=== PATIENT | female | born 1955 | race Caucasian/White ===

== ENCOUNTER → 2022-09-29 09:09 | Outpatient (BNVA) | payer OTHER, SELFPAY | PROVIDERS: PCP Internal Medicine; Visit Provider Student in an Organized Health Care Education/Training Program | DX: Z13.89 Encounter for screening for other disorder (principal) ==

== ENCOUNTER → 2023-01-05 08:12 | Outpatient (BNVA) | payer OTHER, SELFPAY | PROVIDERS: PCP Internal Medicine; Visit Provider Student in an Organized Health Care Education/Training Program ==

== ENCOUNTER 2023-04-06 07:47 | Outpatient (AMB) | payer OTHER, SELFPAY ==
[2023-04-06 07:59] VITALS: BP 106/70; PULSE 81; TEMP 36.3; O2SAT 97; BMI 31.7
--- NOTE | 2023-04-06 07:59 | A.OFFVIS_ITS ---
Intake Vital Signs 04/06/23 07:59 Height 5 ft 5 in Weight 190 lb 11.198 oz BMI 31.7 BP 106/70 Blood Pressure Location Rt brachial Position Sitting Pulse 81 Pulse Source Pulse Oximeter Temp 97.3 F Temp Source Skin Pulse Oximetry (%) 97 Intake Visit Reasons: RA Intake Note: Pt seen today for RA follow up. Reports pain/achyness started at knees but has resolved. 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 Accompanied by: Self / Same As Patient Allergies ciprofloxacin [From Cipro] Allergy (Intermediate, Verified 04/06/23 08:04) HIVES Penicillins Allergy (Intermediate, Verified 04/06/23 08:04) Hives [id number] Reductase Inhibitor Allergy (Intermediate, Verified 04/06/23 08:04) MUSCLE WEAKNESS Sulfa (Sulfonamide Antibiotics) Allergy (Intermediate, Verified 04/06/23 08:04) Hives PINEAPPLE Allergy (Intermediate, Uncoded 04/06/23 08:04) Hives SCALLOPS Allergy (Intermediate, Uncoded 04/06/23 08:04) Hives BLUE CHEESE Allergy (Unknown, Uncoded 04/06/23 08:04) Unknown Medication List - Last Reconciled 04/06/23 by Tahira Mackey MD acetaminophen ER (Tylenol Arthritis Pain) 650 mg PO BID folic acid 1 mg PO DAILY methotrexate sodium 20 mg (8 x 2.5 mg) PO QWEEK HPI HPI Comments History of Present Illness Details 67-year-old female with seropositive RA (++RF, -ve CCP) returns for follow-up. Doing better overall. Onmethotrexate 6 tabs once weekly. Cannot think of any side effects related to methotrexate. She feels that the methotrexate to works well for about 5 days then she start gets recurrent pain and stiffness. Over the last 2-3 weeks she has been having pain on the outside of both thighs. That ache is usually worse when standing up and walking after sitting down for a while or after driving. Initial history: This is a 66-year-old female with unremarkable past medical history except for seasonal allergies who presents with left knee pain. The condition started in February of last year with the abrupt onset of left knee pain and swelling. She was evaluated by Orthopedics and had an intra-articular steroid injection which helped her for about 1 year. Last April she also developed abrupt onset right ankle swelling. That improved with Tylenol arthritis and naproxen. Last month she was having left knee pain as well as instability and that resulted in a fall. She was evaluated by Orthopedics and had a left knee intra-articular injection last week which gave her good relief until a few days ago when she started physical therapy, he stated that the physical therapy applied a tape on her knee which worsened her knee pain. So s he had to remove it. Currently patient denies any pain except for her left knee pain. She denies any pain or swelling, stiffness in other joints. Denies Raynaud's. Denies any skin rashes. No history of DVT/PE. [facility] Surgical History H/O arthroscopy History of appendectomy History of cholecystectomy Hx of section Family History Mother Arthritis Father Heart disease Social History Household Members Other:: LIVES ALONE Housing: [facility] Are you a primary long term care social worker to a significant other at home: No Do you presently have visiting nurse or other home services: No 75 years or older and lives alone: No Alcohol intake: current Alcohol intake frequency: holidays/special occasions only Alcohol type: hard liquor Patient Tobacco Use Status: Former Tobacco user Quit Date: 1995 Tobacco use type: Cigarette Cigarettes Per Day: 8 Years Smoked: 30 YEARS e-Cigarette/Vaping Use: Never Used service: No Current occupational status: employed 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 Review of Systems Const All systems reviewed & are unremarkable except as noted in HPI and below Musc Reports arthralgias Physical Exam Vital Signs: Last Vital Signs Temp 97.3 F 04/06/23 07:59 Pulse 81 04/06/23 07:59 BP 106/70 04/06/23 07:59 Pulse Ox 97 04/06/23 07:59 BMI result Body Mass Index 31.7 Const General: cooperative, healthy appearing and comfortable Nutritional Appearance: average body habitus and obese Orientation/consciousness: patient oriented x3 Limitations: no limitations HEENT Head: Yes normocephalic and Yes atraumatic Resp Effort & Inspection: normal respiratory effort and able to speak in complete sentences Auscultation: clear to auscultation bilaterally Cardio Rate: regular rate Neuro General: patient oriented x3 Extrem Other: No synovitis today Left knee crepitus Negative straight leg raise test Bilateral trochanteric bursa area tenderness with negative Darshana's test Normal nailfold capillaroscopy Results Reviewed Results Reviewed: MRI OF LEG JOINT / LOWER EXTREMITY JOINT NO CONTRAST Exam Date: 03/14/2021 10:53 AM Ordering Diagnosis: Difficulty in weight bearing ? History: Pain and limited range of motion. Difficulty weightbearing. ? Left knee MRI: Departmental standard knee MRI protocol was used. ? FINDINGS: The menisci, ACL, PCL and collateral ligaments are intact. There is some mild thinning of the articular surface at the medial margin of the medial femoral condyle. There is some minimal associated subchondral sclerosis. There is substantial bone edema within the medial femoral condyle underlying the articular surface with some proximal extension. There is some immediately adjacent soft tissue edema underlying the posterior aspect of the medial retinaculum. Bony signal abnormality may reflect contusion or stress reaction. There is no evidence of fracture. Overlying soft tissue edema may represent localized inflammation and/or a low-grade medial retinacular sprain.. ? The medial lateral compartment articular surfaces are otherwise intact. There is moderate patellofemoral compartment degeneration. ? There is a Aranda's cyst containing innumerable loculations with some intermediate signal intensity in wall thickening most likely representing synovial proliferation. It measures about 8 cm craniocaudal dimension maximum axial dimensions of 2.7 x 1.9 cm. ? IMPRESSION IMPRESSION: Extensive bone edema within the medial femoral condyle consistent with contusion or stress reaction. Overlying soft tissue edema, localized inflammation versus low-grade medial retinacular injury. Moderate patellofemoral compartment degeneration. Large complex Aranda's cyst. MRI OF LEG JOINT / LOWER EXTREMITY JOINT NO CONTRAST Exam Date: 07/20/2022 4:20 PM Ordering Diagnosis: Internal derangement of left kneeStatus post fallInjury of left knee, initial encounter ? History: Left knee injury. ? Left knee MRI: A departmental standard knee MRI protocol was used. ? FINDINGS: There is a moderately large joint effusion. There is some edema and thickening at the posterior margin of the medial collateral ligament and the adjacent posterior capsule consistent with a low to intermediate grade sprain. The lateral collateral ligaments are intact. The ACL, PCL and menisci are intact. ? There is a subtle undulation of the cortex of the subarticular lateral femoral condyle with a small focus of bone edema evident on sagittal T2-weighted scans. Findings are consistent with a minimal osteochondral injury. There is no evidence of cortical fracture. There are no displaced components or articular surface defects. Finding is marked on coronal image 19 series 401 as well as sagittal image 10 series 701. ? There is severe patellofemoral degeneration. There is some bone edema underlying the articular surface of the trochlea. There is minimal medial and lateral compartment degeneration with some thinning of the articular surface at the extreme joint margins with slight marginal spurring. ? There is a complex Aranda's cyst demonstrating innumerable loculations. It extends about 8.5 cm proximal to distal across the level of the knee joint. Maximum dimensions in the axial plane are approximately 2.3 x 1.7 cm. There is edema and fluid extending distal to the cyst into the proximal thigh overlying the medial head of gastrocnemius muscle consistent with rupture. ? IMPRESSION IMPRESSION: Low to intermediate grade MCL and posterior capsule sprain. Minimal osteochondral injury of the lateral femoral condyle. Severe patellofemoral compartment degeneration. Ruptured complex Aranda's cyst. Joint effusion. ? Reading Radiologist: X-RAY EXAM OF FOOT, COMPLETE (3 VIEWS)Exam Date:05/13/2022 10:19 AMAccession #: [id number] Diagnosis:Flail joint, right ankle and foot ?RIGHT FOOT, 3 VIEWS-WEIGHTBEARING; RIGHT ANKLE, 3 VIEWS?HISTORY: Pain. Flail joint.?PRIORS: None.?FINDINGS: There is mild degenerative spurring of the 1st MTP joint?There is a small plantar spur and a small posterior calcaneal spur.?No fracture, malalignment, or foreign body is seen.?There is mild soft tissue swelling overlying the lateral malleolus.?The ankle mortise appears normally aligned.?IMPRESSIONIMPRESSION: Mild soft tissue swelling.?Mild osteoarthritis of the 1st MTP joint.?Calcaneal spurs. Labs 04/2022 RF 64 (<15) CCP negative Labs 07/2022 significantly elevated inflammatory markers, hepatitis panel negative T spot negative Assessment & Plan Assessment & Plan (1) Rheumatoid arthritis: Comment: ++RF, -ve CCP Dx 08/19 MTX 15 mg started 10/21 effective advanced to 20 mg 04/20 Code(s): M06.9 - Rheumatoid arthritis, unspecified Qualifiers: Rheumatoid arthritis location: multiple sites Rheumatoid factor presence: with rheumatoid factor Qualified Code(s): M05.79 - Rheumatoid arthritis with rheumatoid factor of multiple sites without organ or systems involvement Plan: This is a 67-year-old female with seropositive RA returns for follow-up. Doing fairly well on methotrexate 15 mg weekly but who works for about 5 days then she started getting achy. Increase methotrexate to 20 mg once weekly, split dose. Continue folic acid 1 mg daily Patient is a chronic smoker and continues to smoke 10 cigarettes a day. I explained that smoking is associated with active RA and poor prognosis. She is working on cutting down. 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 Will monitor patient for side effects with frequent lab work. Advised patient to take folic acid daily to prevent complications of methotrexate. (3) Trochanteric bursitis of both hips: Code(s): M70.61 - Trochanteric bursitis, right hip; M70.62 - Trochanteric bursitis, left hip Plan: I provided patient with a printout of home exercises to do for greater trochanteric pain syndrome. Plan I spent 24 minutes reviewing patient's chart, evaluating patient, ordering diagnostic workup, counseling patient and documenting in the chart Orders: Orders Complete Blood Count Auto Diff 3 Months Z79.631 - termite helper (current) use of antimetabolite agent Comprehensive Met. Panel 3 Months Z79.631 - termite helper (current) use of antimetabolite agent C Reactive Protein 3 Months Z79.631 - termite helper (current) use of antimetabolite agent Erythrocyte Sedimentation Rate 3 Months Z79.631 - [facility] (current) use of antimetabolite agent Medications: Changed 2 From methotrexate sodium 15 mg (6 x 2.5 mg) PO QWEEK 72 tabs 0RF To methotrexate sodium Split dose in to 4 tabs twice. 12-24 hours apart 20 mg (8 x 2.5 mg) PO QWEEK 96 tabs 0RF Coding Level of Care Code Est Pt Level 4 (19721) Diagnoses Rheumatoid arthritis M05.79 Rheumatoid arthritis location: multiple sites Rheumatoid factor presence: with rheumatoid factor termite helper 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 Trochanteric bursitis of both hips M70.61; M70.62
== END 2023-04-06 08:37 | disposition home or self-care (01) ==
PROVIDERS: PCP Internal Medicine; Visit Provider Student in an Organized Health Care Education/Training Program
DX: M05.79 Rheumatoid arthritis with rheumatoid factor of multiple sites without organ or systems involvement (principal); Z79.631 Long term (current) use of antimetabolite agent; M70.61 Trochanteric bursitis, right hip; M70.62 Trochanteric bursitis, left hip
CPT/HCPCS: 99214

== ENCOUNTER → 2023-04-06 07:47 | Outpatient (BNVA) | payer OTHER, SELFPAY | PROVIDERS: Visit Provider Student in an Organized Health Care Education/Training Program ==

== ENCOUNTER 2023-07-06 07:41 | Outpatient (REF) | payer OTHER, SELFPAY ==
--- NOTE | ~2023-07-06 | XR_ITS ---
EXAMINATION: XR FOOT, RIGHT CLINICAL INFORMATION: Rheumatoid arthritis. COMPARISON: None available. TECHNIQUE: AP, lateral, and oblique views of the right foot. FINDINGS: Moderate degenerative changes first metatarsophalangeal joint with lateral joint space narrowing and hypertrophic change. Moderate degenerative changes second IP joints. Moderate plantar calcaneal spur with punctate soft tissue calcification inferior to the anterior aspect of the calcaneus. XR/XR foot RT min 3V IMPRESSION: Moderate degenerative changes in the first metatarsophalangeal joint. Moderate plantar calcaneal spur with punctate soft tissue calcification inferior to the anterior aspect of the calcaneus. Recommend follow-up imaging in 10-14 days if fracture is suspected.
== END 2023-07-06 07:42 | disposition home or self-care (01) ==
LOC: HO.XRAY 07:41
PROVIDERS: PCP Internal Medicine; Visit Provider Student in an Organized Health Care Education/Training Program
DX: M05.79 Rheumatoid arthritis with rheumatoid factor of multiple sites without organ or systems involvement (principal)
CPT/HCPCS: 73630

== ENCOUNTER 2023-07-06 07:41 | Outpatient (AMB) | payer OTHER, SELFPAY ==
[2023-07-06 07:48] VITALS: BP 100/64; PULSE 83; TEMP 36.1; O2SAT 95; BMI 32.2
--- NOTE | 2023-07-06 07:48 | A.OFFVIS_ITS ---
Intake Vital Signs 07/06/23 07:48 Height 5 ft 5 in Weight 193 lb 12.581 oz BMI 32.2 BP 100/64 Blood Pressure Location Rt brachial Position Sitting Pulse 83 Pulse Source Pulse Oximeter Temp 97 F Temp Source Skin Pulse Oximetry (%) 95 Oxygen Delivery Method Room Air Intake Visit Reasons: RA Intake Note: Pt last seen 04/06/23, presents today for follow up and test results. MTX increased to 20mg Reports taking doxy for whole on right second toe around 05/22/23. 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 Accompanied by: Self / Same As Patient Allergies ciprofloxacin [From Cipro] Allergy (Intermediate, Verified 07/06/23 07:53) HIVES Penicillins Allergy (Intermediate, Verified 07/06/23 07:53) Hives [id number] Reductase Inhibitor Allergy (Intermediate, Verified 07/06/23 07:53) MUSCLE WEAKNESS Sulfa (Sulfonamide Antibiotics) Allergy (Intermediate, Verified 07/06/23 07:53) Hives PINEAPPLE Allergy (Intermediate, Uncoded 07/06/23 07:53) Hives SCALLOPS Allergy (Intermediate, Uncoded 07/06/23 07:53) Hives BLUE CHEESE Allergy (Unknown, Uncoded 07/06/23 07:53) Unknown Medication List - Last Reconciled 07/06/23 by Thaira Mackey MD acetaminophen ER (Tylenol Arthritis Pain) 650 mg PO BID folic acid 1 mg PO DAILY methotrexate sodium 17.5 mg PO QWEEK methotrexate sodium 17.5 mg PO QWEEK HPI HPI Comments History of Present Illness Details 67-year-old female with seropositive RA (++RF, -ve CCP) returns for follow-up. Last visit methotrexate dose was increased from 15-20 mg. Patient states that she is taking 17.5 mg. States that 20 mg makes her dizzy. She is doing very well with no joint pain, swelling or stiffness. Back in April however she went to urgent care due to a wound in her right 4th toe associated with erythema. She was prescribed a doxycycline course for 7 days with significant improvement however she continues to have some pain in that right 4th toe. Initial history: This is a 66-year-old female with unremarkable past medical history except for seasonal allergies who presents with left knee pain. The condition started in February of last year with the abrupt onset of left knee pain and swelling. She was evaluated by Orthopedics and had an intra-articular steroid injection which helped her for about 1 year. Last April she also developed abrupt onset right ankle swelling. That improved with Tylenol arthritis and naproxen. Last month she was having left knee pain as well as instability and that resulted in a fall. She was evaluated by Orthopedics and had a left knee intra-articular injection last week which gave her good relief until a few days ago when she started physical therapy, he stated that the physical therapy applied a tape on her knee which worsened her knee pain. So she had to remove it. Currently patient denies any pain except for her left knee pain. She denies any pain or swelling, stiffness in other joints. Denies Raynaud's. Denies any skin rashes. No history of DVT/PE. [facility] Surgical History Hx of section H/O arthroscopy History of cholecystectomy History of appendectomy Family History Mother Arthritis Father Heart disease Social History Household Members Other:: LIVES ALONE Housing: Condominium Are you a primary janitor caretaker to a significant other at home: No Do you presently have visiting nurse or other home services: No 75 years or older and lives alone: No Alcohol intake: current Alcohol intake frequency: holidays/special occasions only Alcohol type: hard liquor Patient Tobacco Use Status: Former Tobacco user Quit Date: 1995 Tobacco use type: Cigarette Cigarettes Per Day: 10 Years Smoked: 30 YEARS e-Cigarette/Vaping Use: Never Used service: No Current occupational status: employed 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 Review of Systems Const All systems reviewed & are unremarkable except as noted in HPI and below Musc Reports arthralgias Physical Exam Vital Signs: Last Vital Signs Temp 97 F 07/06/23 07:48 Pulse 83 07/06/23 07:48 BP 100/64 07/06/23 07:48 Pulse Ox 95 07/06/23 07:48 Oxygen Delivery Method Room Air 07/06/23 07:48 BMI result Body Mass Index 32.2 Const General: cooperative, healthy appearing and comfortable Nutritional Appearance: average body habitus and obese Orientation/consciousness: patient oriented x3 Limitations: no limitations HEENT Head: Yes normocephalic and Yes atraumatic Resp Effort & Inspection: normal respiratory effort and able to speak in complete sentences Auscultation: clear to auscultation bilaterally Cardio Rate: regular rate Neuro General: patient oriented x3 Extrem Other: No synovitis today Normal nailfold capillaroscopy Tiny circular wound on the outer aspect of the right 4th toe, minimally tender to palpation. There is no surrounding erythema, swelling or warmth Results Reviewed Results Reviewed: MRI OF LEG JOINT / LOWER EXTREMITY JOINT NO CONTRAST Exam Date: 03/14/2021 10:53 AM Ordering Diagnosis: Difficulty in weight bearing ? History: Pain and limited range of motion. Difficulty weightbearing. ? Left knee MRI: Departmental standard knee MRI protocol was used. ? FINDINGS: The menisci, ACL, PCL and collateral ligaments are intact. There is some mild thinning of the articular surface at the medial margin of the medial femoral condyle. There is some minimal associated subchondral sclerosis. There is substantial bone edema within the medial femoral condyle underlying the articular surface with some proximal extension. There is some immediately adjacent soft tissue edema underlying the posterior aspect of the medial retinaculum. Bony signal abnormality may reflect contusion or stress reaction. There is no evidence of fracture. Overlying soft tissue edema may represent localized inflammation and/or a low-grade medial retinacular sprain.. ? The medial lateral compartment articular surfaces are otherwise intact. There is moderate patellofemoral compartment degeneration. ? There is a Aranda's cyst containing innumerable loculations with some intermediate signal intensity in wall thickening most likely representing synovial proliferation. It measures about 8 cm craniocaudal dimension maximum axial dimensions of 2.7 x 1.9 cm. ? IMPRESSION IMPRESSION: Extensive bone edema within the medial femoral condyle consistent with contusion or stress reaction. Overlying soft tissue edema, localized inflammation versus low-grade medial retinacular injury. Moderate patellofemoral compartment degeneration. Large complex Aranda's cyst. MRI OF LEG JOINT / LOWER EXTREMITY JOINT NO CONTRAST Exam Date: 07/20/2022 4:20 PM Ordering Diagnosis: Internal derangement of left kneeStatus post fallInjury of left knee, initial encounter ? History: Left knee injury. ? Left knee MRI: A departmental standard knee MRI protocol was used. ? FINDINGS: There is a moderately large joint effusion. There is some edema and thickening at the posterior margin of the medial collateral ligament and the adjacent posterior capsule consistent with a low to intermediate grade sprain. The lateral collateral ligaments are intact. The ACL, PCL and menisci are intact. ? There is a subtle undulation of the cortex of the subarticular lateral femoral condyle with a small focus of bone edema evident on sagittal T2-weighted scans. Findings are consistent with a minimal osteochondral injury. There is no evidence of cortical fracture. There are no displaced components or articular surface defects. Finding is marked on coronal image 19 series 401 as well as sagittal image 10 series 701. ? There is severe patellofemoral degeneration. There is some bone edema underlying the articular surface of the trochlea. There is minimal medial and lateral compartment degeneration with some thinning of the articular surface at the extreme joint margins with slight marginal spurring. ? There is a complex Aranda's cyst demonstrating innumerable loculations. It extends about 8.5 cm proximal to distal across the level of the knee joint. Maximum dimensions in the axial plane are approximately 2.3 x 1.7 cm. There is edema and fluid extending distal to the cyst into the proximal thigh overlying the medial head of gastrocnemius muscle consistent with rupture. ? IMPRESSION IMPRESSION: Low to intermediate grade MCL and posterior capsule sprain. Minimal osteochondral injury of the lateral femoral condyle. Severe patellofemoral compartment degeneration. Ruptured complex Aranda's cyst. Joint effusion. ? Reading Radiologist: X-RAY EXAM OF FOOT, COMPLETE (3 VIEWS)Exam Date:05/13/2022 10:19 AMAccession #: [id number] Diagnosis:Flail joint, right ankle and foot ?RIGHT FOOT, 3 VIEWS-WEIGHTBEARING; RIGHT ANKLE, 3 VIEWS?HISTORY: Pain. Flail joint.?PRIORS: None.?FINDINGS: There is mild degenerative spurring of the 1st MTP joint?There is a small plantar spur and a small posterior calcaneal spur.?No fracture, malalignment, or foreign body is seen.?There is mild soft tissue swelling overlying the lateral malleolus.?The ankle mortise appears normally aligned.?IMPRESSIONIMPRESSION: Mild soft tissue swelling.?Mild osteoarthritis of the 1st MTP joint.?Calcaneal spurs. Labs 04/2022 RF 64 (<15) CCP negative Labs 07/2022 significantly elevated inflammatory markers, hepatitis panel negative T spot negative Assessment & Plan Assessment & Plan (1) Rheumatoid arthritis: Comment: ++RF, -ve CCP Dx 08/19 MTX 15 mg started 10/21 effective Code(s): M06.9 - Rheumatoid arthritis, unspecified Qualifiers: Rheumatoid arthritis location: multiple sites Rheumatoid factor presence: with rheumatoid factor Qualified Code(s): M05.79 - Rheumatoid arthritis with rheumatoid factor of multiple sites without organ or systems involvement Plan: This is a 67-year-old female with seropositive RA returns for follow-up. Doing well on methotrexate 17.5 mg weekly. 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 She was prescribed doxycycline with improvement, she continues to have some pain in the area., on exam she has a tiny circular wound on the right 4th toe. Will check a right foot x-ray. Will prescribe anti fungal cream and advised patient to hold methotrexate for 2 weeks (4) Immunization counseling: Code(s): Z71.85 - Encounter for immunization safety counseling Plan: Discussed ACR vaccination guidelines for adults with autoimmune rheumatic disease on immune suppression. Patient already received flu vaccine for this season. I suggested that patient get the new COVID booster Plan I spent 28 minutes reviewing patient's chart, evaluating patient, ordering diagnostic workup, counseling patient and documenting in the chart Orders: Orders Comprehensive Met. 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) use of antimetabolite agent Erythrocyte Sedimentation Rate 3 Months Z79.631 - senior living (current) use of antimetabolite agent Complete Blood Count Auto Diff 3 Months Z79.631 - predatory animal exterminator (current) use of antimetabolite agent XR foot RT min 3V Today M06.9 - Rheumatoid arthritis, unspecified Medications: New terbinafine HCl 1% (Antifungal (terbinafine)) 2 weeks 1 appl topical BID 15 grams 0RF methotrexate sodium 17.5 mg (7 x 2.5 mg) PO QWEEK 84 tabs 0RF Coding Level of Care Code Est Pt Level 4 (42093) Diagnoses Rheumatoid arthritis involving multiple sites with positive rheumatoid factor M05.79 Rheumatoid arthritis location: multiple sites Rheumatoid factor presence: with rheumatoid factor 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
== END 2023-07-06 08:19 | disposition home or self-care (01) ==
PROVIDERS: PCP Internal Medicine; Visit Provider Student in an Organized Health Care Education/Training Program
DX: M05.79 Rheumatoid arthritis with rheumatoid factor of multiple sites without organ or systems involvement (principal); Z79.631 Long term (current) use of antimetabolite agent; S91.104A Unspecified open wound of right lesser toe(s) without damage to nail, initial encounter; Z71.85 Encounter for immunization safety counseling
CPT/HCPCS: 99214

== ENCOUNTER 2023-10-26 07:25 | Outpatient (AMB) | payer OTHER, SELFPAY ==
--- NOTE | 2023-10-26 07:29 | MHC.OFFVIS ---
Intake Vital Signs 10/26/23 07:33 Height 5 ft 5 in Weight 195 lb 1.745 oz BMI 32.5 BP 110/64 Blood Pressure Location Rt brachial Position Sitting Pulse 87 Pulse Source Pulse Oximeter Temp 97.3 F Temp Source Skin Pulse Oximetry (%) 97 Oxygen Delivery Method Room Air Intake Visit Reasons: RA Intake Note: Patient last seen 07/06/23 presents today for follow up and test results. Had covid in [facility], nosebleeds with dry mouth Side Puller Required: No Accompanied by: Self / Same As Patient Allergies ciprofloxacin [From Cipro] Allergy (Intermediate, Verified 10/26/23 07:34) HIVES Penicillins Allergy (Intermediate, Verified 10/26/23 07:34) Hives Mipcbco-ACY-UzL Reductase Inhibitor Allergy (Intermediate, Verified 10/26/23 07:34) MUSCLE WEAKNESS Sulfa (Sulfonamide Antibiotics) Allergy (Intermediate, Verified 10/26/23 07:34) Hives PINEAPPLE Allergy (Intermediate, Uncoded 10/26/23 07:34) Hives SCALLOPS Allergy (Intermediate, Uncoded 10/26/23 07:34) Hives BLUE CHEESE Allergy (Unknown, Uncoded 10/26/23 07:34) Unknown Medication List - Last Reconciled 10/26/23 by Tahira Mackey MD acetaminophen ER (Tylenol Arthritis Pain) 650 mg PO BID folic acid 1 mg PO DAILY methotrexate sodium 10 mg (4 x 2.5 mg) PO QWEEK terbinafine HCl 1% (Antifungal (terbinafine)) 1 appl topical BID HPI HPI Comments History of Present Illness Details 67-year-old female with seropositive RA (++RF, -ve CCP) returns for follow-up. On methotrexate 20 mg weekly. She stated that 17.5 mg did not last the whole week so she has been taking 20 mg for the last month which is working well. She had COVID in August, she had a fever for 1 day and had some dry mouth and nose. It resolved in a few days. She is doing well with no joint pain or swelling. Initial history: This is a 66-year-old female with unremarkable past medical history except for seasonal allergies who presents with left knee pain. The condition started in February of last year with the abrupt onset of left knee pain and swelling. She was evaluated by Orthopedics and had an intra-articular steroid injection which helped her for about 1 year. Last April she also developed abrupt onset right ankle swelling. That improved with Tylenol arthritis and naproxen. Last month she was having left knee pain as well as instability and that resulted in a fall. She was evaluated by Orthopedics and had a left knee intra-articular injection last week which gave her good relief until a few days ago when she started physical therapy, he stated that the physical therapy applied a tape on her knee which worsened her knee pain. So she had to remove it. Currently patient denies any pain except for her left knee pain. She denies any pain or swelling, stiffness in other joints. Denies Raynaud's. Denies any skin rashes. No history of DVT/PE. [facility] Surgical History Hx of section H/O arthroscopy History of cholecystectomy History of appendectomy Family History Mother Arthritis Father Heart disease Social History Household Members Other:: LIVES ALONE [facility] Are you a primary personal care worker to a significant other at home: No Do you presently have visiting nurse or other home services: No 75 years or older and lives alone: No Alcohol intake: current Alcohol intake frequency: holidays/special occasions only Alcohol type: hard liquor Patient Tobacco Use Status: Former Tobacco user Quit Date: 1995 Tobacco use type: Cigarette Cigarettes Per Day: 10 Years Smoked: 30 YEARS e-Cigarette/Vaping Use: Never Used service: No Current occupational status: employed 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 Review of Systems [facility] [place] Denies arthralgias and Denies joint swelling Physical Exam Vital Signs: Last Vital Signs Temp 97.3 F 10/26/23 07:33 Pulse 87 10/26/23 07:33 BP 110/64 10/26/23 07:33 Pulse Ox 97 10/26/23 07:33 Oxygen Delivery Method Room Air 10/26/23 07:33 BMI result Body Mass Index 32.5 Const General: cooperative, healthy appearing and comfortable Nutritional Appearance: average body habitus and obese Orientation/consciousness: patient oriented x3 Limitations: no limitations HEENT Head: Yes normocephalic and Yes atraumatic Mouth: moist mucous membranes Resp Effort & Inspection: normal respiratory effort and able to speak in complete sentences Auscultation: clear to auscultation bilaterally Cardio Rate: regular rate Rhythm: regular rhythm Skin General skin exam: no rashes or lesions noted Neuro General: patient oriented x3 Extrem Other: No synovitis today Normal nailfold capillaroscopy Results Reviewed Results Reviewed: MRI OF LEG JOINT / LOWER EXTREMITY JOINT NO CONTRAST Exam Date: 03/14/2021 10:53 AM Ordering Diagnosis: Difficulty in weight bearing ? History: Pain and limited range of motion. Difficulty weightbearing. ? Left knee MRI: Departmental standard knee MRI protocol was used. ? FINDINGS: The menisci, ACL, PCL and collateral ligaments are intact. There is some mild thinning of the articular surface at the medial margin of the medial femoral condyle. There is some minimal associated subchondral sclerosis. There is substantial bone edema within the medial femoral condyle underlying the articular surface with some proximal extension. There is some immediately adjacent soft tissue edema underlying the posterior aspect of the medial retinaculum. Bony signal abnormality may reflect contusion or stress reaction. There is no evidence of fracture. Overlying soft tissue edema may represent localized inflammation and/or a low-grade medial retinacular sprain.. ? The medial lateral compartment articular surfaces are otherwise intact. There is moderate patellofemoral compartment degeneration. ? There is a Aranda's cyst containing innumerable loculations with some intermediate signal intensity in wall thickening most likely representing synovial proliferation. It measures about 8 cm craniocaudal dimension maximum axial dimensions of 2.7 x 1.9 cm. ? IMPRESSION IMPRESSION: Extensive bone edema within the medial femoral condyle consistent with contusion or stress reaction. Overlying soft tissue edema, localized inflammation versus low-grade medial retinacular injury. Moderate patellofemoral compartment degeneration. Large complex Aranda's cyst. MRI OF LEG JOINT / LOWER EXTREMITY JOINT NO CONTRAST Exam Date: 07/20/2022 4:20 PM Ordering Diagnosis: Internal derangement of left kneeStatus post fallInjury of left knee, initial encounter ? History: Left knee injury. ? Left knee MRI: A departmental standard knee MRI protocol was used. ? FINDINGS: There is a moderately large joint effusion. There is some edema and thickening at the posterior margin of the medial collateral ligament and the adjacent posterior capsule consistent with a low to intermediate grade sprain. The lateral collateral ligaments are intact. The ACL, PCL and menisci are intact. ? There is a subtle undulation of the cortex of the subarticular lateral femoral condyle with a small focus of bone edema evident on sagittal T2-weighted scans. Findings are consistent with a minimal osteochondral injury. There is no evidence of cortical fracture. There are no displaced components or articular surface defects. Finding is marked on coronal image 19 series 401 as well as sagittal image 10 series 701. ? There is severe patellofemoral degeneration. There is some bone edema underlying the articular surface of the trochlea. There is minimal medial and lateral compartment degeneration with some thinning of the articular surface at the extreme joint margins with slight marginal spurring. ? There is a complex Aranda's cyst demonstrating innumerable loculations. It extends about 8.5 cm proximal to distal across the level of the knee joint. Maximum dimensions in the axial plane are approximately 2.3 x 1.7 cm. There is edema and fluid extending distal to the cyst into the proximal thigh overlying the medial head of gastrocnemius muscle consistent with rupture. ? IMPRESSION IMPRESSION: Low to intermediate grade MCL and posterior capsule sprain. Minimal osteochondral injury of the lateral femoral condyle. Severe patellofemoral compartment degeneration. Ruptured complex Aranda's cyst. Joint effusion. ? Reading Radiologist: X-RAY EXAM OF FOOT, COMPLETE (3 VIEWS)Exam Date:05/13/2022 10:19 AMAccession #:[id number] Diagnosis:Flail joint, right ankle and foot ?RIGHT FOOT, 3 VIEWS-WEIGHTBEARING; RIGHT ANKLE, 3 VIEWS?HISTORY: Pain. Flail joint.?PRIORS: None.?FINDINGS: There is mild degenerative spurring of the 1st MTP joint?There is a small plantar spur and a small posterior calcaneal spur.?No fracture, malalignment, or foreign body is seen.?There is mild soft tissue swelling overlying the lateral malleolus.?The ankle mortise appears normally aligned.?IMPRESSIONIMPRESSION: Mild soft tissue swelling.?Mild osteoarthritis of the 1st MTP joint.?Calcaneal spurs. Labs 04/2022 RF 64 (<15) CCP negative Labs 07/2022 significantly elevated inflammatory markers, hepatitis panel negative T spot negative Assessment & Plan Assessment & Plan (1) Rheumatoid arthritis: Comment: ++RF, -ve CCP Dx 08/19 MTX started 10/21 effective Code(s): M06.9 - Rheumatoid arthritis, unspecified Qualifiers: Rheumatoid arthritis location: multiple sites Rheumatoid factor presence: with rheumatoid factor Qualified Code(s): M05.79 - Rheumatoid arthritis with rheumatoid factor of multiple sites without organ or systems involvement Plan: This is a 67-year-old female with seropositive RA returns for follow-up. Doing well on methotrexate 20 mg weekly. She self increased her methotrexate from 17.5 mg weekly to 20 mg weekly as it was not lasting long enough. Doing well on the current dose with no active synovitis. Inflammatory markers unremarkable Continue methotrexate 20 mg weekly and folic acid 1 mg daily Infectious screening: Hepatitis panel and T spot -ve 2022 Labs before next visit in 4 months (2) assisted methotrexate user: Code(s): Z79.631 - assisted (current) use of antimetabolite agent Plan: Monitor safety labs (3) Screening for osteoporosis: Code(s): Z13.820 - Encounter for screening for osteoporosis Plan: Patient does not recall ever getting a bone density scan done. Discussed patient that she is due for a bone density scan. 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 agent Medications: Changed From methotrexate sodium 10 mg (4 x 2.5 mg) PO QWEEK 52 tabs 1RF To methotrexate sodium 20 mg (8 x 2.5 mg) PO QWEEK 96 tabs 1RF Refilled folic acid 1 mg PO DAILY 90 tabs 1RF Discontinued terbinafine HCl 1% (Antifungal (terbinafine)) 2 weeks Discontinued Reason: Patient Completed Course 1 appl topical BID 15 grams 0RF Coding Level of Care Code Est Pt Level 4 (97676) Diagnoses Rheumatoid arthritis involving multiple sites with positive rheumatoid factor M05.79 Rheumatoid arthritis location: multiple sites Rheumatoid factor presence: with rheumatoid factor assisted 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 Screening for osteoporosis Z13.820
[2023-10-26 07:33] VITALS: BP 110/64; PULSE 87; TEMP 36.3; O2SAT 97; BMI 32.5
== END 2023-10-26 07:54 | disposition home or self-care (01) ==
PROVIDERS: PCP Internal Medicine; Visit Provider Student in an Organized Health Care Education/Training Program
DX: M05.79 Rheumatoid arthritis with rheumatoid factor of multiple sites without organ or systems involvement (principal); Z79.631 Long term (current) use of antimetabolite agent; Z13.820 Encounter for screening for osteoporosis
CPT/HCPCS: 99214

== ENCOUNTER → 2023-10-26 07:25 | Outpatient (BNVA) | payer OTHER, SELFPAY | PROVIDERS: PCP Internal Medicine; Visit Provider Student in an Organized Health Care Education/Training Program ==

== ENCOUNTER 2024-02-22 07:24 | Outpatient (AMB) | payer OTHER, SELFPAY ==
[2024-02-22 07:32] VITALS: BP 118/64; PULSE 83; O2SAT 98; BMI 31.8
--- NOTE | 2024-02-22 07:32 | A.OFFVIS_ITS ---
Vital Signs 02/22/24 07:32 Height 5 ft 5 in Weight 191 lb 2.252 oz BMI 31.8 BP 118/64 Blood Pressure Location Rt brachial Position Sitting Pulse 83 Pulse Source Pulse Oximeter Pulse Oximetry (%) 98 Oxygen Delivery Method Room Air Intake Visit Reasons: RA/cm Intake Note: Pt seen today for RA follow up. Requests medication refill. 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 Accompanied by: Self / Same As Patient Allergies ciprofloxacin [From Cipro] Allergy (Intermediate, Verified 02/22/24 07:39) HIVES Penicillins Allergy (Intermediate, Verified 02/22/24 07:39) Hives Nqcmhbr-LBI-IvA Reductase Inhibitor Allergy (Intermediate, Verified 02/22/24 07:39) MUSCLE WEAKNESS Sulfa (Sulfonamide Antibiotics) Allergy (Intermediate, Verified 02/22/24 07:39) Hives PINEAPPLE Allergy (Intermediate, Uncoded 02/22/24 07:39) Hives SCALLOPS Allergy (Intermediate, Uncoded 02/22/24 07:39) Hives BLUE CHEESE Allergy (Unknown, Uncoded 02/22/24 07:39) Unknown Medication List - Last Reconciled 02/22/24 by Tahira Mackey MD acetaminophen ER (Tylenol Arthritis Pain) 650 mg PO BID folic acid 1 mg PO DAILY methotrexate sodium 25 mg (10 x 2.5 mg) PO QWEEK prednisone 20 mg PO DAILY 5 days HPI Comments Details: 68-year-old female with seropositive RA (++RF, -ve CCP) returns for follow-up. On methotrexate 20 mg weekly split dose. She states that she has been having some stiffness and inability to fully flex her right 3rd and 4th fingers this has been going on for the last 2-3 weeks. She also gets left heel pain with walking. She has history of plantar fasciitis affecting her left ankle in the past. She will be retiring towards the end of February. She is doing well otherwise. Initial history: This is a 66-year-old female with unremarkable past medical history except for seasonal allergies who presents with left knee pain. The condition started in February of last year with the abrupt onset of left knee pain and swelling. She was evaluated by Orthopedics and had an intra-articular steroid injection which helped her for about 1 year. Last April she also developed abrupt onset right ankle swelling. That improved with Tylenol arthritis and naproxen. Last month she was having left knee pain as well as instability and that resulted in a fall. She was evaluated by Orthopedics and had a left knee intra-articular injection last week which gave her good relief until a few days ago when she started physical therapy, he stated that the physical therapy applied a tape on her knee which worsened her knee pain. So she had to remove it. Currently patient denies any pain except for her left knee pain. She denies any pain or swelling, stiffness in other joints. Denies Raynaud's. Denies any skin rashes. No history of DVT/PE. [facility] Surgical History Hx of section H/O arthroscopy History of cholecystectomy History of appendectomy Family History Mother Arthritis Father Heart disease Social History Household Members Other:: LIVES ALONE 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 Female Reproductive History Menstrual Total pregnancies: 2 Full term: 2 Review of Systems [facility] [place] Reports arthralgias, Reports limited range of motion and Reports stiffness Physical Exam Vital Signs: Last Vital Signs Pulse 83 02/22/24 07:32 BP 118/64 02/22/24 07:32 Pulse Ox 98 02/22/24 07:32 Oxygen Delivery Method Room Air 02/22/24 07:32 BMI result Body Mass Index 31.8 Const General: cooperative, healthy appearing and comfortable Nutritional Appearance: average body habitus and obese Orientation/consciousness: patient oriented x3 Limitations: no limitations HEENT Head: Yes normocephalic and Yes atraumatic Mouth: moist mucous membranes Resp Effort & Inspection: normal respiratory effort and able to speak in complete sentences Auscultation: clear to auscultation bilaterally Cardio Rate: regular rate Rhythm: regular rhythm Skin General skin exam: no rashes or lesions noted Neuro General: patient oriented x3 Extrem Other: Inability to fully flex right 3rd and 4th PIPs No active synovitis otherwise Normal nailfold capillaroscopy Results Reviewed Results Reviewed: MRI OF LEG JOINT / LOWER EXTREMITY JOINT NO CONTRAST Exam Date: 03/14/2021 10:53 AM Ordering Diagnosis: Difficulty in weight bearing ? History: Pain and limited range of motion. Difficulty weightbearing. ? Left knee MRI: Departmental standard knee MRI protocol was used. ? FINDINGS: The menisci, ACL, PCL and collateral ligaments are intact. There is some mild thinning of the articular surface at the medial margin of the medial femoral condyle. There is some minimal associated subchondral sclerosis. There is substantial bone edema within the medial femoral condyle underlying the articular surface with some proximal extension. There is some immediately adjacent soft tissue edema underlying the posterior aspect of the medial retinaculum. Bony signal abnormality may reflect contusion or stress reaction. There is no evidence of fracture. Overlying soft tissue edema may represent localized inflammation and/or a low-grade medial retinacular sprain.. ? The medial lateral compartment articular surfaces are otherwise intact. There is moderate patellofemoral compartment degeneration. ? There is a Aranda's cyst containing innumerable loculations with some intermediate signal intensity in wall thickening most likely representing synovial proliferation. It measures about 8 cm craniocaudal dimension maximum axial dimensions of 2.7 x 1.9 cm. ? IMPRESSION IMPRESSION: Extensive bone edema within the medial femoral condyle consistent with contusion or stress reaction. Overlying soft tissue edema, localized inflammation versus low-grade medial retinacular injury. Moderate patellofemoral compartment degeneration. Large complex Aranda's cyst. MRI OF LEG JOINT / LOWER EXTREMITY JOINT NO CONTRAST Exam Date: 07/20/2022 4:20 PM Ordering Diagnosis: Internal derangement of left kneeStatus post fallInjury of left knee, initial encounter ? History: Left knee injury. ? Left knee MRI: A departmental standard knee MRI protocol was used. ? FINDINGS: There is a moderately large joint effusion. There is some edema and thickening at the posterior margin of the medial collateral ligament and the adjacent posterior capsule consistent with a low to intermediate grade sprain. The lateral collateral ligaments are intact. The ACL, PCL and menisci are intact. ? There is a subtle undulation of the cortex of the subarticular lateral femoral condyle with a small focus of bone edema evident on sagittal T2-weighted scans. Findings are consistent with a minimal osteochondral injury. There is no evidence of cortical fracture. There are no displaced components or articular surface defects. Finding is marked on coronal image 19 series 401 as well as sagittal image 10 series 701. ? There is severe patellofemoral degeneration. There is some bone edema underlying the articular surface of the trochlea. There is minimal medial and lateral compartment degeneration with some thinning of the articular surface at the extreme joint margins with slight marginal spurring. ? There is a complex Aranda's cyst demonstrating innumerable loculations. It extends about 8.5 cm proximal to distal across the level of the knee joint. Maximum dimensions in the axial plane are approximately 2.3 x 1.7 cm. There is edema and fluid extending distal to the cyst into the proximal thigh overlying the medial head of gastrocnemius muscle consistent with rupture. ? IMPRESSION IMPRESSION: Low to intermediate grade MCL and posterior capsule sprain. Minimal osteochondral injury of the lateral femoral condyle. Severe patellofemoral compartment degeneration. Ruptured complex Aranda's cyst. Joint effusion. ? Reading Radiologist: X-RAY EXAM OF FOOT, COMPLETE (3 VIEWS)Exam Date:05/13/2022 10:19 AMAccession #: [id number] Diagnosis:Flail joint, right ankle and foot ?RIGHT FOOT, 3 VIEWS-WEIGHTBEARING; RIGHT ANKLE, 3 VIEWS?HISTORY: Pain. Flail joint.?PRIORS: None.?FINDINGS: There is mild degenerative spurring of the 1st MTP joint?There is a small plantar spur and a small posterior calcaneal spur.?No fracture, malalignment, or foreign body is seen.?There is mild soft tissue swelling overlying the lateral malleolus.?The ankle mortise appears normally aligned.?IMPRESSIONIMPRESSION: Mild soft tissue swelling.?Mild osteoarthritis of the 1st MTP joint.?Calcaneal spurs. Labs 04/2022 RF 64 (<15) CCP negative Labs 07/2022 significantly elevated inflammatory markers, hepatitis panel negative T spot negative Assessment & Plan Assessment & Plan (1) Rheumatoid arthritis: Comment: ++RF, -ve CCP Dx 08/19 MTX started 10/21 effective Code(s): M06.9 - Rheumatoid arthritis, unspecified Category: Medical Qualifiers: Rheumatoid arthritis location: multiple sites Rheumatoid factor presence: with rheumatoid factor Qualified Code(s): M05.79 - Rheumatoid arthritis with rheumatoid factor of multiple sites without organ or systems involvement Plan: This is a 67-year-old female with seropositive RA returns for follow-up. Doing well on methotrexate 20 mg weekly plus folic acid 1 mg daily. Having a mild flare-up affecting her right 2nd and 3rd PIP is. Inflammatory markers mildly elevated. Increase methotrexate to 25 mg once weekly split dose. 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 Discussed patient that she is due for a bone density scan. She stated that she will discuss it with her PCP Plan I spent 28 minutes reviewing patient's chart, evaluating patient, ordering diagnostic workup, counseling patient and documenting in the chart Orders: Orders Complete Blood Count Auto Diff 4 Months M05.79 - Rheumatoid arthritis with rheumatoid factor of multiple sites without organ or systems involvement, Z79.631 - terminal make up operator (current) use of antimetabolite agent Comprehensive Met. Panel 4 Months M0 - Rheumatoid arthritis with rheumatoid factor of multiple sites without organ or systems involvement, Z79.631 - terminal make up operator (current) use of antimetabolite agent Erythrocyte Sedimentation Rate 4 Months M0.79 - Rheumatoid arthritis with rheumatoid factor of multiple sites without organ or systems involvement, Z79.631 - [facility] (current) use of antimetabolite agent C Reactive Protein 4 Months M0.79 - Rheumatoid arthritis with rheumatoid factor of multiple sites without organ or systems involvement, Z79.631 - [facility] (current) use of antimetabolite agent Medications: New prednisone 20 mg PO DAILY 5 tabs 0RF 5 days Changed From methotrexate sodium 20 mg (8 x 2.5 mg) PO QWEEK 96 tabs 1RF To methotrexate sodium 25 mg (10 x 2.5 mg) PO QWEEK 120 tabs 1RF Refilled folic acid 1 mg PO DAILY 90 tabs 1RF Coding Level of Care Code Est Pt Level 4 (36161) Complex EM visit Add On G2211 Diagnoses Rheumatoid arthritis involving multiple sites with positive rheumatoid factor M05.79 Rheumatoid arthritis location: multiple sites Rheumatoid factor presence: with rheumatoid factor [facility] 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 Screening for osteoporosis Z13.820
== END 2024-02-22 07:58 | disposition home or self-care (01) ==
PROVIDERS: PCP Internal Medicine; Visit Provider Student in an Organized Health Care Education/Training Program
DX: M05.79 Rheumatoid arthritis with rheumatoid factor of multiple sites without organ or systems involvement (principal); Z79.631 Long term (current) use of antimetabolite agent; Z13.820 Encounter for screening for osteoporosis
CPT/HCPCS: 99214; G2211

== ENCOUNTER → 2024-02-22 07:24 | Outpatient (BNVA) | payer OTHER, SELFPAY | PROVIDERS: PCP Internal Medicine; Visit Provider Student in an Organized Health Care Education/Training Program ==

== ENCOUNTER 2024-06-18 11:37 | Outpatient (REF) | payer OTHER, SELFPAY ==
[2024-06-18 13:17] LABS: MANUAL DIFF FLAG NO
[2024-06-18 13:27] LABS: Basophils Percent Auto 0.3 % (0-2); Eosinophils Absolute Auto 0.1 X10*3/uL (0.0-0.4); Hematocrit 44.7 % (37.0-47.0); Hemoglobin 14.6 g/dl (12.0-16.0); Imm Gran Abs Auto 0.04 X10*3/uL (0.00-0.03); Imm Gran Pct Auto 0.3 % (0.0-0.4); Lymphocytes Percent Auto 17.1 % (20-40); Mean Corpuscular HGB Conc 32.7 g/dl (31.0-35.0); Monocytes Absolute Auto 0.9 X10*3/uL (0.1-1.2); Monocytes Percent Auto 7.4 % (2-11); Neutrophils Absolute Auto 8.7 x10*3/uL (2.0-8.3); Neutrophils Percent Auto 73.9 % (45-73); Platelet Count 403 X10*3/uL (160-400); Red Blood Count 4.56 X10*6/uL (4.20-5.50); White Blood Count 11.8 X10*3/uL (4.8-10.8)
[2024-06-18 13:38] LABS: Alanine Aminotransferase 33 U/L (0-31); Alkaline Phosphatase 80 U/L (39-117); Anion Gap 10 (12-20); Aspartate Amino Transferase 29 U/L (5-31); Bilirubin Total 0.3 mg/dL (0.0-1.0); Blood Urea Nitrogen 14 mg/dL (9-16); C Reactive Protein 1.22 mg/dL (< or = 0.50); Calcium 9.3 mg/dL (8.4-10.2); Carbon Dioxide 29 mmol/L (22-29); Chloride 108 mmol/L (96-108); Estimated Glomerular Filt Rate 48; Glucose Random 107 mg/dL (60-115); Potassium 3.6 mmol/L (3.3-5.1); Sodium 143 mmol/L (135-145)
[2024-06-18 14:32] LABS: Erythrocyte Sedimentation Rate 7 MM/HR (0-20)
== END 2024-06-18 11:38 | disposition home or self-care (01) ==
LOC: HO.HMGCLDS 11:37
PROVIDERS: PCP Internal Medicine; Visit Provider Student in an Organized Health Care Education/Training Program
DX: M05.79 Rheumatoid arthritis with rheumatoid factor of multiple sites without organ or systems involvement (principal); Z79.631 Long term (current) use of antimetabolite agent
CPT/HCPCS: 36415; 80053; 85025; 85652; 86140

== ENCOUNTER 2024-06-26 07:45 | Outpatient (AMB) | payer OTHER, SELFPAY ==
--- NOTE | 2024-06-26 07:48 | MHC.OFFVIS ---
Vital Signs 06/26/24 07:53 Height 5 ft 5 in Weight 190 lb 7.67 oz BMI 31.7 BP 122/64 Blood Pressure Location Rt brachial Position Sitting Pulse 77 Pulse Source Pulse Oximeter Pulse Oximetry (%) 98 Oxygen Delivery Method Room Air Intake Visit Reasons: RA/CM Intake Note: Patient presents for RA. Allergies ciprofloxacin [From Cipro] Allergy (Intermediate, Verified 06/26/24 07:53) HIVES Penicillins Allergy (Intermediate, Verified 06/26/24 07:53) Hives Pnslxzt-ULZ-XnI Reductase Inhibitor Allergy (Intermediate, Verified 06/26/24 07:53) MUSCLE WEAKNESS Sulfa (Sulfonamide Antibiotics) Allergy (Intermediate, Verified 06/26/24 07:53) Hives PINEAPPLE Allergy (Intermediate, Uncoded 02/22/24 07:39) Hives SCALLOPS Allergy (Intermediate, Uncoded 02/22/24 07:39) Hives BLUE CHEESE Allergy (Unknown, Uncoded 02/22/24 07:39) Unknown Medication List - Last Reconciled 06/26/24 by Tahira Mackey MD acetaminophen ER (Tylenol Arthritis Pain) 650 mg PO BID folic acid 1 mg PO DAILY methotrexate sodium 25 mg (10 x 2.5 mg) PO QWEEK HPI Comments Details: 68-year-old female with seropositive RA (++RF, -ve CCP) returns for follow-up. On methotrexate 25 mg weekly split dose. She states that increasing the methotrexate dose from 10-25 mg once weekly may have made some difference, she definitely feels slightly more fatigued. He continues to feel generalized joint pain aching and stiffness 1 or 2 days before her methotrexate dose. Her right ring finger continues to get stuck intermittently. Initial history: This is a 66-year-old female with unremarkable past medical history except for seasonal allergies who presents with left knee pain. The condition started in February of last year with the abrupt onset of left knee pain and swelling. She was evaluated by Orthopedics and had an intra-articular steroid injection which helped her for about 1 year. Last April she also developed abrupt onset right ankle swelling. That improved with Tylenol arthritis and naproxen. Last month she was having left knee pain as well as instability and that resulted in a fall. She was evaluated by Orthopedics and had a left knee intra-articular injection last week which gave her good relief until a few days ago when she started physical therapy, he stated that the physical therapy applied a tape on her knee which worsened her knee pain. So she had to remove it. Currently patient denies any pain except for her left knee pain. She denies any pain or swelling, stiffness in other joints. Denies Raynaud's. Denies any skin rashes. No history of DVT/PE. [facility] Surgical History Hx of section H/O arthroscopy History of cholecystectomy History of appendectomy Family History Mother Arthritis Father Heart disease Social History Household Members Other:: LIVES ALONE [facility] Are you a primary occasional caregiver to a significant other at home: No Do you presently have visiting nurse or other home services: No 75 years or older and lives alone: No Alcohol intake: current Alcohol intake frequency: holidays/special occasions only Alcohol type: hard liquor Patient Tobacco Use Status: Current everyday Tobacco user Tobacco use type: Cigarette Cigarettes Per Day: 10 Years Smoked: 30 YEARS e-Cigarette/Vaping Use: Never Used service: No Current occupational status: employed 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 Female Reproductive History Menstrual Total pregnancies: 2 Full term: 2 Review of Systems Musc Reports arthralgias, Reports limited range of motion and Reports stiffness Physical Exam Vital Signs: Last Vital Signs Pulse 77 06/26/24 07:53 BP 122/64 06/26/24 07:53 Pulse Ox 98 06/26/24 07:53 Oxygen Delivery Method Room Air 06/26/24 07:53 BMI result Body Mass Index 31.7 Const General: cooperative, healthy appearing and comfortable Nutritional Appearance: average body habitus and obese Orientation/consciousness: patient oriented x3 Limitations: no limitations HEENT Head: Yes normocephalic and Yes atraumatic Mouth: moist mucous membranes Resp Effort & Inspection: normal respiratory effort and able to speak in complete sentences Auscultation: clear to auscultation bilaterally Cardio Rate: regular rate Rhythm: regular rhythm Skin General skin exam: no rashes or lesions noted Neuro General: patient oriented x3 Extrem Other: No swollen or tender joints noted today Normal nailfold capillaroscopy Office Procedures Tendon Injection Tendon Injection Details: Patient's consent. The palm of the left hand was prepped with ChloraPrep and alcohol. Under topical ethyl chloride spray the [4th] flexor tendon sheath was injected with 20 mg of triamcinolone and 0.2 cc of 1% lidocaine. The patient tolerated the procedure without any acute complications. [id number] Tendon Sheath Injection All charges added?: Procedure code (CPT) selection complete Results Reviewed Results Reviewed: MRI OF LEG JOINT / LOWER EXTREMITY JOINT NO CONTRAST Exam Date: 03/14/2021 10:53 AM Ordering Diagnosis: Difficulty in weight bearing ? History: Pain and limited range of motion. Difficulty weightbearing. ? Left knee MRI: Departmental standard knee MRI protocol was used. ? FINDINGS: The menisci, ACL, PCL and collateral ligaments are intact. There is some mild thinning of the articular surface at the medial margin of the medial femoral condyle. There is some minimal associated subchondral sclerosis. There is substantial bone edema within the medial femoral condyle underlying the articular surface with some proximal extension. There is some immediately adjacent soft tissue edema underlying the posterior aspect of the medial retinaculum. Bony signal abnormality may reflect contusion or stress reaction. There is no evidence of fracture. Overlying soft tissue edema may represent localized inflammation and/or a low-grade medial retinacular sprain.. ? The medial lateral compartment articular surfaces are otherwise intact. There is moderate patellofemoral compartment degeneration. ? There is a Aranda's cyst containing innumerable loculations with some intermediate signal intensity in wall thickening most likely representing synovial proliferation. It measures about 8 cm craniocaudal dimension maximum axial dimensions of 2.7 x 1.9 cm. ? IMPRESSION IMPRESSION: Extensive bone edema within the medial femoral condyle consistent with contusion or stress reaction. Overlying soft tissue edema, localized inflammation versus low-grade medial retinacular injury. Moderate patellofemoral compartment degeneration. Large complex Aranda's cyst. MRI OF LEG JOINT / LOWER EXTREMITY JOINT NO CONTRAST Exam Date: 07/20/2022 4:20 PM Ordering Diagnosis: Internal derangement of left kneeStatus post fallInjury of left knee, initial encounter ? History: Left knee injury. ? Left knee MRI: A departmental standard knee MRI protocol was used. ? FINDINGS: There is a moderately large joint effusion. There is some edema and thickening at the posterior margin of the medial collateral ligament and the adjacent posterior capsule consistent with a low to intermediate grade sprain. The lateral collateral ligaments are intact. The ACL, PCL and menisci are intact. ? There is a subtle undulation of the cortex of the subarticular lateral femoral condyle with a small focus of bone edema evident on sagittal T2-weighted scans. Findings are consistent with a minimal osteochondral injury. There is no evidence of cortical fracture. There are no displaced components or articular surface defects. Finding is marked on coronal image 19 series 401 as well as sagittal image 10 series 701. ? There is severe patellofemoral degeneration. There is some bone edema underlying the articular surface of the trochlea. There is minimal medial and lateral compartment degeneration with some thinning of the articular surface at the extreme joint margins with slight marginal spurring. ? There is a complex Aranda's cyst demonstrating innumerable loculations. It extends about 8.5 cm proximal to distal across the level of the knee joint. Maximum dimensions in the axial plane are approximately 2.3 x 1.7 cm. There is edema and fluid extending distal to the cyst into the proximal thigh overlying the medial head of gastrocnemius muscle consistent with rupture. ? IMPRESSION IMPRESSION: Low to intermediate grade MCL and posterior capsule sprain. Minimal osteochondral injury of the lateral femoral condyle. Severe patellofemoral compartment degeneration. Ruptured complex Aranda's cyst. Joint effusion. ? Reading Radiologist: X-RAY EXAM OF FOOT, COMPLETE (3 VIEWS)Exam Date:05/13/2022 10:19 AMAccession #:[id number] Diagnosis:Flail joint, right ankle and foot ?RIGHT FOOT, 3 VIEWS-WEIGHTBEARING; RIGHT ANKLE, 3 VIEWS?HISTORY: Pain. Flail joint.?PRIORS: None.?FINDINGS: There is mild degenerative spurring of the 1st MTP joint?There is a small plantar spur and a small posterior calcaneal spur.?No fracture, malalignment, or foreign body is seen.?There is mild soft tissue swelling overlying the lateral malleolus.?The ankle mortise appears normally aligned.?IMPRESSIONIMPRESSION: Mild soft tissue swelling.?Mild osteoarthritis of the 1st MTP joint.?Calcaneal spurs. Labs 04/2022 RF 64 (<15) CCP negative Labs 07/2022 significantly elevated inflammatory markers, hepatitis panel negative T spot negative Assessment & Plan Assessment & Plan (1) Rheumatoid arthritis: Comment: ++RF, -ve CCP Dx 08/19 MTX started 10/21 effective Code(s): M06.9 - Rheumatoid arthritis, unspecified Category: Medical Qualifiers: Rheumatoid arthritis location: multiple sites Rheumatoid factor presence: with rheumatoid factor Qualified Code(s): M05.79 - Rheumatoid arthritis with rheumatoid factor of multiple sites without organ or systems involvement Plan: This is a 68-year-old female with seropositive RA returns for follow-up. Increasing the methotrexate dose from 20 mg weekly to 25 mg weekly did not do much of a difference. She continues to have generalized joint aching and stiffness for 1 or 2 days before her dose. 25 mg also caused mild transaminitis and mild fatigue. Her inflammatory markers remain elevated which may be related to obesity and smoking but I think it was partly related to suboptimal control of her RA. I think adding another DMARD will be beneficial. Discussed risks and benefits of hydroxychloroquine. Patient agreed to proceed. Start hydroxychloroquine 200 mg Twice daily Lower methotrexate to 20 mg once weekly split dose Continue folic acid 1 mg daily Labs before next visit in 3 months (2) penitentiary methotrexate user: Code(s): Z79.631 - penitentiary (current) use of antimetabolite agent Category: Medical Plan: Monitor safety labs (3) Trigger finger of left hand: Code(s): M65.30 - Trigger finger, unspecified finger Category: Medical Qualifiers: Trigger finger location: ring finger Qualified Code(s): M65.342 - Trigger finger, left ring finger Plan: With patient's consent, left 4th trigger was injected in clinic. If no improvement, can consider injecting the left 4th PIP (4) Tobacco abuse counseling: Code(s): Z71.6 - Tobacco abuse counseling Category: Medical Plan: A pack lasts her 2-3 days. Discussed the association of cigarette smoking with active RA in addition to the known adverse health effects of smoking. (5) Long-term use of hydroxychloroquine: Code(s): Z79.899 - Other rat exterminator (current) drug therapy Category: Medical Plan: Discussed risk of retinopathy associated with hydroxychloroquine. Advised patient to make an appointment with apparel fashion designer Plan I spent 45 minutes reviewing patient's chart, evaluating patient, ordering diagnostic workup, counseling patient and documenting in the chart Orders: Orders Comprehensive Met. Panel 3 Months M05.79 - Rheumatoid arthritis with rheumatoid factor of multiple sites without organ or systems involvement, Z79.631 - moth exterminator (current) use of antimetabolite agent C Reactive Protein 3 Months M05.79 - Rheumatoid arthritis with rheumatoid factor of multiple sites without organ or systems involvement, Z79.631 - moth exterminator (current) use of antimetabolite agent Erythrocyte Sedimentation Rate 3 Months M05.79 - Rheumatoid arthritis with rheumatoid factor of multiple sites without organ or systems involvement, Z79.631 - moth exterminator (current) use of antimetabolite agent Complete Blood Count Auto Diff 3 Months M05.79 - Rheumatoid arthritis with rheumatoid factor of multiple sites without organ or systems involvement, Z79.631 - penitentiary (current) use of antimetabolite agent Hepatitis A,B,C Profile 3 Months Z11.59 - Encounter for screening for other viral diseases T Spot TB 3 Months Z11.7 - Encounter for testing for latent tuberculosis infection AMB Tendon Injection Today M65.30 - Trigger finger, unspecified finger Medications: New hydroxychloroquine 200 mg PO BID 60 tabs 2RF Changed From methotrexate sodium 25 mg (10 x 2.5 mg) PO QWEEK 120 tabs 1RF To methotrexate sodium 20 mg (8 x 2.5 mg) PO QWEEK 96 tabs 1RF Refilled folic acid 1 mg PO DAILY 90 tabs 1RF Coding Level of Care Code Est Pt Level 5 (31671) Complex EM visit Add On G2211 Diagnoses Rheumatoid arthritis involving multiple sites with positive rheumatoid factor M05.79 Rheumatoid arthritis location: multiple sites Rheumatoid factor presence: with rheumatoid factor penitentiary 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 Trigger ring finger of left hand M65.342 Trigger finger location: ring finger Tobacco abuse counseling Z71.6 Long-term use of hydroxychloroquine Z79.899 CPT Codes Tendon Injection - Tendon Injection 1: [id number] Tendon Sheath Injection ([id number])
[2024-06-26 07:53] VITALS: BP 122/64; PULSE 77; O2SAT 98; BMI 31.7
== END 2024-06-26 08:30 | disposition home or self-care (01) ==
LOC: HO.RHE 07:46
PROVIDERS: PCP Internal Medicine; Visit Provider Student in an Organized Health Care Education/Training Program
DX: M05.79 Rheumatoid arthritis with rheumatoid factor of multiple sites without organ or systems involvement (principal); Z79.631 Long term (current) use of antimetabolite agent; M65.342 Trigger finger, left ring finger; Z71.6 Tobacco abuse counseling; Z79.899 Other long term (current) drug therapy
CPT/HCPCS: 20550; 99215

== ENCOUNTER → 2024-06-26 07:45 | Outpatient (BNVA) | payer OTHER, SELFPAY | PROVIDERS: PCP Internal Medicine; Visit Provider Student in an Organized Health Care Education/Training Program | DX: M05.79 Rheumatoid arthritis with rheumatoid factor of multiple sites without organ or systems involvement (principal); M65.342 Trigger finger, left ring finger; F17.210 Nicotine dependence, cigarettes, uncomplicated; Z79.631 Long term (current) use of antimetabolite agent; Z79.899 Other long term (current) drug therapy; Z71.6 Tobacco abuse counseling | CPT/HCPCS: 20550; J2003; J3301 ==

== ENCOUNTER 2024-09-18 11:13 | Outpatient (REF) | payer OTHER, SELFPAY ==
[2024-09-18 13:10] LABS: MANUAL DIFF FLAG NO
[2024-09-18 13:18] LABS: Basophils Percent Auto 0.3 % (0-2); Eosinophils Absolute Auto 0.1 X10*3/uL (0.0-0.4); Eosinophils Percent Auto 1.4 % (0-4); Hematocrit 47.2 % (37.0-47.0); Hemoglobin 15.5 g/dl (12.0-16.0); Imm Gran Abs Auto 0.03 X10*3/uL (0.00-0.03); Imm Gran Pct Auto 0.3 % (0.0-0.4); Lymphocytes Absolute Auto 1.9 X10*3/uL (1.2-4.9); Lymphocytes Percent Auto 19.9 % (20-40); Mean Corpuscular HGB Conc 32.8 g/dl (31.0-35.0); Mean Corpuscular Hemoglobin 31.7 pg (27.0-33.0); Mean Corpuscular Volume 96.5 fL (80.0-98.0); Mean Platelet Volume 11.4 fL (9.4-12.3); Monocytes Absolute Auto 0.8 X10*3/uL (0.1-1.2); Monocytes Percent Auto 8.4 % (2-11); Neutrophils Absolute Auto 6.7 x10*3/uL (2.0-8.3); Neutrophils Percent Auto 69.7 % (45-73); Platelet Count 395 X10*3/uL (160-400); Red Blood Count 4.89 X10*6/uL (4.20-5.50); Red Cell Distribution Width 14.1 % (11.0-16.0); White Blood Count 9.7 X10*3/uL (4.8-10.8)
[2024-09-18 13:56] LABS: Alanine Aminotransferase 30 U/L (0-31); Albumin Level 4.3 g/dL (3.5-5.0); Alkaline Phosphatase 81 U/L (39-117); Anion Gap 11 (12-20); Aspartate Amino Transferase 24 U/L (5-31); Bilirubin Total 0.2 mg/dL (0.0-1.0); Blood Urea Nitrogen 20 mg/dL (9-16); C Reactive Protein 1.02 mg/dL (< or = 0.50); Calcium 9.2 mg/dL (8.4-10.2); Carbon Dioxide 28 mmol/L (22-29); Chloride 105 mmol/L (96-108); Estimated Glomerular Filt Rate > 60; Glucose Random 81 mg/dL (60-115); Potassium 4.1 mmol/L (3.3-5.1); Sodium 140 mmol/L (135-145); Total Protein 7.8 g/dL (6.5-8.0)
[2024-09-18 13:57] LABS: Erythrocyte Sedimentation Rate 8 MM/HR (0-20)
[2024-09-19 08:35] LABS: HBS Num1 56.81 mIU/mL (0-7.99); HBc Num1 0.05 S/CO (0.00-0.79); HBsAGNum1 0.35 S/CO (0.00-0.99); Hepatitis A Antibody IgM 0.13 Index (0-0.79); Hepatitis B Core Antibody Nonreactive (Nonreactive); Hepatitis B Surface Antigen Negative (Negative); ~HepC Num1 0.11 S/CO (0.00-0.79); ~Hepatitis A Antibody IgM Nonreactive (Nonreactive); ~Hepatitis B Surface Antibody REACTIVE (Nonreactive); ~Hepatitis C Antibody Nonreactive (Nonreactive)
== END 2024-09-18 11:14 | disposition home or self-care (01) ==
LOC: HO.HMGCLDS 11:13
PROVIDERS: PCP Internal Medicine; Visit Provider Student in an Organized Health Care Education/Training Program
DX: M05.79 Rheumatoid arthritis with rheumatoid factor of multiple sites without organ or systems involvement (principal); Z79.631 Long term (current) use of antimetabolite agent; Z11.7 Encounter for testing for latent tuberculosis infection; Z11.59 Encounter for screening for other viral diseases
CPT/HCPCS: 36415; 80053; 85025; 85652; 86140; 86481; 86704; 86706; 86709; 86803; 87340

== ENCOUNTER 2024-09-26 07:42 | Outpatient (AMB) | payer OTHER, SELFPAY ==
--- NOTE | 2024-09-26 07:46 | A.OFFVIS_ITS ---
Vital Signs 09/26/24 07:47 Height 5 ft 5 in Weight 185 lb 3.013 oz BMI 30.8 BP 128/78 Blood Pressure Location Rt brachial Position Sitting Pulse 88 Pulse Source Pulse Oximeter Intake Visit Reasons: RA Intake Note: Patient presents here today for a follow-up on Rheumatoid Arthritis: Multiskill Operator Required: No Accompanied by: Self / Same As Patient Allergies ciprofloxacin [From Cipro] Allergy (Intermediate, Verified 09/26/24 07:52) HIVES Penicillins Allergy (Intermediate, Verified 09/26/24 07:52) Hives [id number]-OCF-SzM Reductase Inhibitor Allergy (Intermediate, Verified 09/26/24 07:52) MUSCLE WEAKNESS Sulfa (Sulfonamide Antibiotics) Allergy (Intermediate, Verified 09/26/24 07:52) Hives PINEAPPLE Allergy (Intermediate, Uncoded 09/26/24 07:52) Hives SCALLOPS Allergy (Intermediate, Uncoded 09/26/24 07:52) Hives BLUE CHEESE Allergy (Unknown, Uncoded 09/26/24 07:52) Unknown Medication List - Last Reconciled 09/26/24 by Magnolia Flores MD acetaminophen ER (Tylenol Arthritis Pain) 650 mg PO BID PRN folic acid 1 mg PO DAILY hydroxychloroquine 200 mg PO BID methotrexate sodium 20 mg (8 x 2.5 mg) PO QWEEK HPI Comments Details: Patient is a 65 y.o. female with seropositive rheumatoid arthritis here today for follow up Interval History: Last seen 06/26/[address] Mackey. At that time she had increased her weekly dose of methotrexate from 20-25 on a background of worsening stiffness and generalized joint pain and aching. She felt that the increase in methotrexate did not do much of a difference. Her LFTs got slightly elevated at the 25 mg dose and so hydroxychloroquine was added and the methotrexate was lowered Today, Patient states she is doing well overall Notes improvement on the Plaquenil Interested in quitting smoking Rheumatologic History: ++RF, -ve CCP Dx 08/19 MTX started 2/23 effective - increased dose of methotrexate from 20-25 mg 01/2024. This was not associated with improvement in her symptoms and had worsening transaminitis Plaquenil added 05/2024 Current Rheumatology Medication(s): Methotrexate 25 mg p.o. weekly split dose Plaquenil 200mg po daily Folic acid 1mg daily PFSH Surgical History Hx of section H/O arthroscopy History of cholecystectomy History of appendectomy Family History Mother Arthritis Father Heart disease Social History Household Members Other:: LIVES ALONE [facility] Are you a primary foster care case manager to a significant other at home: No Do you presently have visiting nurse or other home services: No 75 years or older and lives alone: No Alcohol intake: current Alcohol intake frequency: holidays/special occasions only Alcohol type: hard liquor Patient Tobacco Use Status: Current everyday Tobacco user Tobacco use type: Cigarette Cigarettes Per Day: 10 Years Smoked: 30 YEARS e-Cigarette/Vaping Use: Never Used service: No Current occupational status: employed 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 Review of Systems Const Details: Review of Systems Constitutional: Denies fever, chills, weight loss ENT: Denies vision changes, eye pain or eye redness, dental caries, dry mouth GI: Denies nausea, vomiting, diarrhea, abdominal pain, change in BM Pulm: Denies SOB, MARVIN, hemoptysis, wheezing Cards: Denies chest pain, palpitations Skin: Denies Raynaud's, rash, nail changes, photosensitivity, NATIONAL ACCOUNT EXECUTIVE: Denies headaches, weakness, paresthesias, recurrent falls MSK: as per HPI All other systems reviewed and are unremarkable except noted above Physical Exam Vital Signs: Last Vital Signs Pulse 88 09/26/24 07:47 BP 128/78 09/26/24 07:47 BMI result Body Mass Index 30.8 Vital signs reviewed Physical Examination CONSTITUITIONAL Patient alert and cooperative. Well appearing and in no apparent painful distress HEENT Conjunctiva and sclera clear. ?Pupils equal round and reactive to light. ?No lymphadenopathy. ? CHEST/RESPIRATORY SYSTEM Normal respiratory effort and able to speak in complete sentences. ?Clear to auscultation bilaterally. ?No crackles, rales, rhonchi, wheezes heard. CARDIAC SYSTEM Regular rate and rhythm. ?S1 and S2 heard no murmurs. ?Radial pulses intact bilaterally MSK Hands: ?Good health and safety director strength bilaterally. No deformities noted. ?No synovitis noted to the MCPs, PIPs or DIPs. ?No tenderness to palpation of these joints. Wrists: ?Full range of motion at the wrists without pain. ?No tenderness to palpation or synovitis noted to the wrists. Elbows: Full range of motion without pain. No tenderness, weakness, swelling, increased warmth or erythema. Shoulders: Full range of motion without pain. No tenderness, weakness, swelling, increased warmth or erythema. Hips: Full range of motion without pain. Hip bursa: No tenderness to palpation Knees: ?Full range of motion. ?No tenderness, swelling, increased warmth or erythema.?No effusion or crepitations Ankles: Full range of motion. ?No tenderness, swelling, increased warmth or erythema.? Feet: ?Negative squeeze test. ?No tenderness to palpation or swelling of the MTPs. Tender points:?No tenderness to palpation of the bilateral trapezius, supraspinatus, greater trochanters, anterior costochondral junctions, bilateral gluteal areas, bilateral suboccipital muscle insertions SKIN Skin intact without rashes. Results Reviewed Results Reviewed: Laboratory Tests 06/18/24 09/18/24 09/18/24 11:41 11:18 11:58 WBC 9.7 RBC 4.89 Hgb 15.5 Hct 47.2 H Plt Count 395 ESR 8 Sodium 140 Potassium 4.1 Chloride 105 Carbon Dioxide 28 BUN 20 H Creatinine 0.82 AST 24 ALT 30 Alkaline Phosphatase 81 C-Reactive Protein 1.22 H 1.02 H Total Protein 7.8 Albumin 4.3 Hepatitis A IgM Ab Nonreactive Hep Bs Antigen Negative Hep Bs Antibody REACTIVE Hep B Core Total Ab Nonreactive Hepatitis C Ab (EIA) Nonreactive TB Test (T-Spot) Com TNP Assessment & Plan Assessment & Plan (1) Rheumatoid arthritis: Comment: ++RF, -ve CCP Dx 08/19 MTX started 10/21 effective Code(s): M06.9 - Rheumatoid arthritis, unspecified Category: Medical Qualifiers: Rheumatoid arthritis location: multiple sites Rheumatoid factor presence: with rheumatoid factor Qualified Code(s): M05.79 - Rheumatoid arthritis with rheumatoid factor of multiple sites without organ or systems involvement Plan: #Seropositive RA Patient is a 68-year-old female with seropositive rheumatoid arthritis. Currently in remission with no tender or swollen joints on examination Labs reviewed. Transaminitis improved after decreasing methotrexate from 10 pills to 8 pills per week. Kidney function normal CBC with no evidence of leukopenia or anemia. Plan - Methotrexate 20mg weekly PO - Plaquenil 200mg bid PO - Folic acid 1 mg daily - RTC 4 months - Labs prior to apt: CBC, CMP, ESR, CRP (2) Tobacco abuse counseling: Code(s): Z71.6 - Tobacco abuse counseling Category: Medical Plan: #Smoking cessation Patient interested in smoking cessation. Recommended nicotine patch. Discussed the 3 step approach patient willing to try. Currently smokes half a pack a day Plan - 21 mg nicotine patch for 6 weeks then 14 mg nicotine patch for 2 weeks then 7 mg nicotine patch for 2 weeks. 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 (current) drug therapy Category: Medical Plan: #Long-term Use of Hydroxychloroquine Discussed with patient the risks and benefits of hydroxychloroquine in managing the rheumatic condition Benefits include: - Reduced pain, reduce mortality, maintenance of remission and reduction of flares Risks include: - GI upset, skin hyperpigmentation, retinal toxicity (especially after more than 5 years of use), myopathy Advised yearly ophthalmology visits (4) correction methotrexate user: Code(s): Z79.631 - correction (current) use of antimetabolite agent Category: Medical Plan: #Long-term Current Use of Methotrexate Discussed with patient the benefits and risks of methotrexate for managing their rheumatic condition Benefits include reduced pain, reduced mortality, maintenance of remission and reduction of flares Risks include oral ulcers, photosensitivity, hepatotoxicity, hematologic toxicity, pneumonitis, flu-like symptoms (especially day after administration), nodulosis, lymphomas ? Limit alcohol and avoid Bactrim ? Monitoring: ?CBC, BMP, LFTs every 3-4 months and hepatitis serologies as needed ? Plan I spent 40 minutes reviewing the record and labs, taking a history, examining the patient, discussing the treatment plan, smoking cessation counseling and documenting in the medical record Orders: Orders Comprehensive Met. Panel 4 Months M05.79 - Rheumatoid arthritis with rheumatoid factor of multiple sites without organ or systems involvement Vitamin D 25-OH (D2 and D3) 4 Months E55.9 - Vitamin D deficiency, unspecified, M05.79 - Rheumatoid arthritis with rheumatoid factor of multiple sites without organ or systems involvement Complete Blood Count Auto Diff 4 Months M05.79 - Rheumatoid arthritis with rheumatoid factor of multiple sites without organ or systems involvement C Reactive Protein 4 Months M05.79 - Rheumatoid arthritis with rheumatoid factor of multiple sites without organ or systems involvement Erythrocyte Sedimentation Rate 4 Months M05.79 - Rheumatoid arthritis with rheumatoid factor of multiple sites without organ or systems involvement Medications: New nicotine apply STEP 1 - 21 mg NICOTINE PATCH daily for 42 days; follow with STEP 2 - 14 mg PATCH daily for 14 days, then STEP 3 - 7mg PATCH daily for 14 days transdermal 70 patches 0RF Z71.6 - Tobacco abuse counseling Refilled methotrexate sodium 20 mg (8 x 2.5 mg) PO QWEEK 96 tabs 1RF M05.79 - Rheumatoid arthritis with rheumatoid factor of multiple sites without organ or systems involvement hydroxychloroquine 200 mg PO BID 60 tabs 3RF M05.79 - Rheumatoid arthritis with rheumatoid factor of multiple sites without organ or systems involvement, Z79.899 - Other longterm (current) drug therapy folic acid 1 mg PO DAILY 90 tabs 1RF M05.79 - Rheumatoid arthritis with rheumatoid factor of multiple sites without organ or systems involvement, Z79.631 - regional intermodal truck 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
[2024-09-26 07:47] VITALS: BP 128/78; PULSE 88; BMI 30.8
== END 2024-09-26 08:28 | disposition home or self-care (01) ==
PROVIDERS: PCP Internal Medicine; Visit Provider Student in an Organized Health Care Education/Training Program
DX: M05.79 Rheumatoid arthritis with rheumatoid factor of multiple sites without organ or systems involvement (principal); Z71.6 Tobacco abuse counseling; Z79.899 Other long term (current) drug therapy; Z79.631 Long term (current) use of antimetabolite agent
CPT/HCPCS: 99215

== ENCOUNTER 2025-01-09 09:59 | Outpatient (REF) | payer MEDICARE, SELFPAY ==
[2025-01-09 13:38] LABS: MANUAL DIFF FLAG NO
[2025-01-09 13:59] LABS: Basophils Percent Auto 0.4 % (0-2); Eosinophils Absolute Auto 0.2 X10*3/uL (0.0-0.4); Eosinophils Percent Auto 2.5 % (0-4); Hematocrit 46.1 % (37.0-47.0); Imm Gran Abs Auto 0.02 X10*3/uL (0.00-0.03); Imm Gran Pct Auto 0.3 % (0.0-0.4); Lymphocytes Absolute Auto 1.3 X10*3/uL (1.2-4.9); Lymphocytes Percent Auto 18.9 % (20-40); Mean Corpuscular HGB Conc 32.5 g/dl (31.0-35.0); Mean Corpuscular Hemoglobin 31.3 pg (27.0-33.0); Mean Corpuscular Volume 96.2 fL (80.0-98.0); Mean Platelet Volume 11.4 fL (9.4-12.3); Monocytes Absolute Auto 0.7 X10*3/uL (0.1-1.2); Monocytes Percent Auto 10.3 % (2-11); Neutrophils Absolute Auto 4.6 x10*3/uL (2.0-8.3); Neutrophils Percent Auto 67.6 % (45-73); Platelet Count 339 X10*3/uL (160-400); Red Blood Count 4.79 X10*6/uL (4.20-5.50); Red Cell Distribution Width 14.3 % (11.0-16.0); White Blood Count 6.8 X10*3/uL (4.8-10.8)
[2025-01-09 14:37] LABS: Alanine Aminotransferase 27 U/L (0-31); Alkaline Phosphatase 78 U/L (39-117); Anion Gap 13 (12-20); Aspartate Amino Transferase 33 U/L (5-31); Bilirubin Total 0.4 mg/dL (0.0-1.0); Blood Urea Nitrogen 12 mg/dL (9-16); C Reactive Protein 1.29 mg/dL (< or = 0.50); Calcium 9.6 mg/dL (8.4-10.2); Carbon Dioxide 27 mmol/L (22-29); Chloride 106 mmol/L (96-108); Estimated Glomerular Filt Rate > 60; Glucose Random 88 mg/dL (60-115); Potassium 4.6 mmol/L (3.3-5.1); Sodium 141 mmol/L (135-145); Total Protein 6.9 g/dL (6.5-8.0)
[2025-01-09 14:39] LABS: Erythrocyte Sedimentation Rate 7 MM/HR (0-20)
[2025-01-14 00:49] LABS: TS Negative Control Passed; TS Panel A 0; TS Panel B 0; TS Positive Control Passed; TSpotTB Negative (Negative)
[2025-01-14 02:53] LABS: Vitamin D 25-OH, D2 5 ng/mL; Vitamin D 25-OH, D3 25 ng/mL; Vitamin D 25-OH, Total 30 ng/mL (30-100)
== END 2025-01-09 10:00 | disposition home or self-care (01) ==
LOC: HO.HMGCLDS 09:59
PROVIDERS: PCP Internal Medicine; Visit Provider Student in an Organized Health Care Education/Training Program
DX: M05.79 Rheumatoid arthritis with rheumatoid factor of multiple sites without organ or systems involvement (principal); E55.9 Vitamin D deficiency, unspecified; Z79.631 Long term (current) use of antimetabolite agent
CPT/HCPCS: 36415; 80053; 82306; 85025; 85652; 86140; 86481

== ENCOUNTER 2025-01-24 08:23 | Outpatient (AMB) | payer OTHER, SELFPAY ==
--- NOTE | 2025-01-24 08:31 | MHC.OFFVIS ---
Vital Signs 01/24/25 08:35 Height 5 ft 5 in Weight 185 lb 6.54 oz BMI 30.9 BP 112/62 Blood Pressure Location Lt brachial Position Sitting Pulse 71 Pulse Source Pulse Oximeter Pulse Oximetry (%) 98 Oxygen Delivery Method Room Air Intake Visit Reasons: RA Intake Note: Patient presents for RA follow up. Allergies ciprofloxacin [From Cipro] Allergy (Intermediate, Verified 01/24/25 08:34) HIVES Penicillins Allergy (Intermediate, Verified 01/24/25 08:34) Hives Mfdbkwy-KRH-CaI Reductase Inhibitor Allergy (Intermediate, Verified 01/24/25 08:34) MUSCLE WEAKNESS Sulfa (Sulfonamide Antibiotics) Allergy (Intermediate, Verified 01/24/25 08:34) Hives PINEAPPLE Allergy (Intermediate, Uncoded 09/26/24 07:52) Hives SCALLOPS Allergy (Intermediate, Uncoded 09/26/24 07:52) Hives BLUE CHEESE Allergy (Unknown, Uncoded 09/26/24 07:52) Unknown Medication List - Last Reconciled 01/24/25 by Magnolia Flores MD acetaminophen ER (Tylenol Arthritis Pain) 650 mg PO BID PRN folic acid 1 mg PO DAILY hydroxychloroquine 200 mg PO BID methotrexate sodium 20 mg (8 x 2.5 mg) PO QWEEK HPI Comments Details: Patient is a 65 y.o. female with seropositive rheumatoid arthritis here today for follow up Interval History: Last seen 09/26/2024 with me. At that time she was on hydroxychloroquine and methotrexate noting improvement in her symptoms. Transaminitis improved after decreasing methotrexate from 10 pills to 8 pills per week. She was interested in quitting smoking and so I prescribed nicotine patches The nicotine patches made her gittery and so she stopped them She tried the gum, but did not like the taste Otherwise doing well with her joints Having some sinus issues Rheumatologic History: ++RF, -ve CCP Dx 08/19 MTX started 10/21 effective - increased dose of methotrexate from 20-25 mg 01/2024. This was not associated with improvement in her symptoms and had worsening transaminitis Plaquenil added 05/2024 Current Rheumatology Medication(s): Methotrexate 20 mg p.o. weekly split dose Plaquenil 200mg po daily Folic acid 1mg daily PFSH Surgical History Hx of section H/O arthroscopy History of cholecystectomy History of appendectomy Family History Mother Arthritis Father Heart disease Social History Household Members Other:: LIVES ALONE Housing: Condominium Are you a primary housekeeper child care to a significant other at home: No Do you presently have visiting nurse or other home services: No 75 years or older and lives alone: No Alcohol intake: current Alcohol intake frequency: holidays/special occasions only Alcohol type: hard liquor Patient Tobacco Use Status: Current everyday Tobacco user Tobacco use type: Cigarette Cigarettes Per Day: 10 Years Smoked: 30 YEARS e-Cigarette/Vaping Use: Never Used service: No Current occupational status: employed 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 Review of Systems Const Details: Review of Systems Constitutional: Denies fever, chills, weight loss ENT: Denies vision changes, eye pain or eye redness, dental caries, dry mouth GI: Denies nausea, vomiting, diarrhea, abdominal pain, change in BM Pulm: Denies SOB, MARVIN, hemoptysis, wheezing Cards: Denies chest pain, palpitations Skin: Denies Raynaud's, rash, nail changes, photosensitivity, PATIENT ACCOUNT REPRESENTATIVE: Denies headaches, weakness, paresthesias, recurrent falls MSK: as per HPI All other systems reviewed and are unremarkable except noted above Physical Exam Vital Signs: Last Vital Signs Pulse 71 01/24/25 08:35 BP 112/62 01/24/25 08:35 Pulse Ox 98 01/24/25 08:35 Oxygen Delivery Method Room Air 01/24/25 08:35 BMI result Body Mass Index 30.9 Vital signs reviewed Physical Examination CONSTITUITIONAL Patient alert and cooperative. Well appearing and in no apparent painful distress HEENT Conjunctiva and sclera clear. ?Pupils equal round and reactive to light. ?No lymphadenopathy. ? CHEST/RESPIRATORY SYSTEM Normal respiratory effort and able to speak in complete sentences. ?Clear to auscultation bilaterally. ?No crackles, rales, rhonchi, wheezes heard. CARDIAC SYSTEM Regular rate and rhythm. ?S1 and S2 heard no murmurs. ?Radial pulses intact bilaterally MSK Hands: ?Good instrument processing tech strength bilaterally. No deformities noted. ?No synovitis noted to the MCPs, PIPs or DIPs. ?No tenderness to palpation of these joints. Wrists: ?Full range of motion at the wrists without pain. ?No tenderness to palpation or synovitis noted to the wrists. Elbows: Full range of motion without pain. No tenderness, weakness, swelling, increased warmth or erythema. Shoulders: Full range of motion without pain. No tenderness, weakness, swelling, increased warmth or erythema. Hips: Full range of motion without pain. Hip bursa: No tenderness to palpation Knees: ?Full range of motion. ?No tenderness, swelling, increased warmth or erythema.?No effusion or crepitations Ankles: Full range of motion. ?No tenderness, swelling, increased warmth or erythema.? Feet: ?Negative squeeze test. ?No tenderness to palpation or swelling of the MTPs. Tender points:?No tenderness to palpation of the bilateral trapezius, supraspinatus, greater trochanters, anterior costochondral junctions, bilateral gluteal areas, bilateral suboccipital muscle insertions SKIN Skin intact without rashes. Results Reviewed Results Reviewed: Laboratory Tests 09/18/24 01/09/25 11:18 10:09 WBC 6.8 RBC 4.79 Hgb 15.0 Hct 46.1 Plt Count 339 ESR 7 Sodium 141 Potassium 4.6 Chloride 106 Carbon Dioxide 27 BUN 12 Creatinine 0.87 AST 33 H ALT 27 Alkaline Phosphatase 78 C-Reactive Protein 1.02 H 1.29 H 25-OH Vitamin D Total 30 Assessment & Plan Assessment & Plan (1) Rheumatoid arthritis: Comment: ++RF, -ve CCP Dx 08/19 MTX started 10/21 effective Code(s): M06.9 - Rheumatoid arthritis, unspecified Category: Medical Qualifiers: Rheumatoid arthritis location: multiple sites Rheumatoid factor presence: with rheumatoid factor Qualified Code(s): M05.79 - Rheumatoid arthritis with rheumatoid factor of multiple sites without organ or systems involvement Plan: #Seropositive RA Patient is a 68-year-old female with seropositive rheumatoid arthritis. Currently in remission with no tender or swollen joints on examination Labs reviewed. Transaminitis improved after decreasing methotrexate from 10 pills to 8 pills per week. Mild elevation in ALT. Decrease Methotrexate to 6 pills a week. Also complaining of Mtx flu type sx such as brain fog. Kidney function normal CBC with no evidence of leukopenia or anemia. Plan - Methotrexate 20mg weekly PO - Plaquenil 200mg bid PO - Folic acid 1 mg daily - RTC 4 months - Labs prior to apt: CBC, CMP, ESR, CRP (2) Tobacco abuse counseling: Code(s): Z71.6 - Tobacco abuse counseling Category: Medical Plan: #Smoking cessation Patient interested in smoking cessation. Nicotine patch and gum did not help. Recommending patient do a slow wean. 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 Category: Medical Plan: #Long-term Use of Hydroxychloroquine Discussed with patient the risks and benefits of hydroxychloroquine in managing the rheumatic condition Benefits include: - Reduced pain, reduce mortality, maintenance of remission and reduction of flares Risks include: - GI upset, skin hyperpigmentation, retinal toxicity (especially after more than 5 years of use), myopathy Advised yearly ophthalmology visits (4) assisted methotrexate user: Code(s): Z79.631 - assisted (current) use of antimetabolite agent Category: Medical Plan: #Long-term Current Use of Methotrexate Discussed with patient the benefits and risks of methotrexate for managing their rheumatic condition Benefits include reduced pain, reduced mortality, maintenance of remission and reduction of flares Risks include oral ulcers, photosensitivity, hepatotoxicity, hematologic toxicity, pneumonitis, flu-like symptoms (especially day after administration), nodulosis, lymphomas ? Limit alcohol and avoid Bactrim ? Monitoring: ?CBC, BMP, LFTs every 3-4 months and hepatitis serologies as needed ? Plan I spent 20 minutes reviewing the record and labs, taking a history, examining the patient, discussing the treatment plan, and documenting in the medical record Orders: Orders Complete Blood Count Auto Diff 4 Months M0 - Rheumatoid arthritis with rheumatoid factor of multiple sites without organ or systems involvement Comprehensive Met. Panel 4 Months - Rheumatoid arthritis with rheumatoid factor of multiple sites without organ or systems involvement Erythrocyte Sedimentation Rate 4 Months - Rheumatoid arthritis with rheumatoid factor of multiple sites without organ or systems involvement C Reactive Protein 4 Months - Rheumatoid arthritis with rheumatoid factor of multiple sites without organ or systems involvement Medications: Changed From methotrexate sodium 20 mg (8 x 2.5 mg) PO QWEEK 96 tabs 1RF M05.79 - Rheumatoid arthritis with rheumatoid factor of multiple sites without organ or systems involvement To methotrexate sodium 15 mg (6 x 2.5 mg) PO QWEEK 90 days 78 tabs 1RF M05.79 - Rheumatoid arthritis with rheumatoid factor of multiple sites without organ or systems involvement Refilled folic acid 1 mg PO DAILY 90 tabs 1RF M05.79 - Rheumatoid arthritis with rheumatoid factor of multiple sites without organ or systems involvement, Z79.631 - exterminator (current) use of antimetabolite agent hydroxychloroquine 200 mg PO BID 60 tabs 3RF M05.79 - Rheumatoid arthritis with rheumatoid factor of multiple sites without organ or systems involvement, Z79.899 - Other senior care (current) drug therapy Coding Level of Care Code Est Pt Level 3 (83090) Complex EM visit Add On G2211 Diagnoses Rheumatoid arthritis involving multiple sites with positive rheumatoid factor M05.79 Rheumatoid arthritis location: multiple sites Rheumatoid factor presence: with rheumatoid factor Tobacco abuse counseling Z71.6 Long-term use of hydroxychloroquine Z79.899 assisted 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
[2025-01-24 08:35] VITALS: BP 112/62; PULSE 71; O2SAT 98; BMI 30.9
== END 2025-01-24 09:14 | disposition home or self-care (01) ==
LOC: HO.RHE 08:24
PROVIDERS: PCP Internal Medicine; Visit Provider Student in an Organized Health Care Education/Training Program
DX: M05.79 Rheumatoid arthritis with rheumatoid factor of multiple sites without organ or systems involvement (principal); Z71.6 Tobacco abuse counseling; Z79.899 Other long term (current) drug therapy; Z79.631 Long term (current) use of antimetabolite agent
CPT/HCPCS: 99213

== ENCOUNTER → 2025-01-24 08:23 | Outpatient (BNVA) | payer MEDICARE, SELFPAY | PROVIDERS: PCP Internal Medicine; Visit Provider Student in an Organized Health Care Education/Training Program | DX: Z79.899 Other long term (current) drug therapy (principal); M05.79 Rheumatoid arthritis with rheumatoid factor of multiple sites without organ or systems involvement; Z79.631 Long term (current) use of antimetabolite agent; E55.9 Vitamin D deficiency, unspecified; Z71.6 Tobacco abuse counseling ==

== ENCOUNTER 2025-05-14 07:30 | Outpatient (REF) | payer MEDICARE, SELFPAY ==
--- OUTSIDE RECORDS SUMMARY | 2025-05-14 07:34 | XMS_ITS | Patient Health Record ---
Author Organization [facility] [place] Address [address] [place] [address] Care Team Providers Care Help Aid Name Role Phone Jian Gill MD Primary Care Provider Unava ilable Black, Fouzia Unavailable [phone] Allergies Allergen (clinical drug ingredient) Drug/Non Drug Allergy documented on EMR Reaction Allergy Type Onset Date Status Blue cheese Blue Cheese (uncoded) Hives Allergy Active ciprofloxacin Cipro hives Drug Allergy Act leonel Pineapple Flavor stomach pain Drug Allergy Active Statins Support severe muscle fatigue Drug Allergy Active sulfa hives Drug Allergy Active Penicillin hives Drug Allergy Active erythromycin hives Drug Allergy Acti ve Shrimp/Shell Fish stomach pains Drug Allergy Active Reason For Referral No Information Medications Medication SIG (Take, Route, Frequency, Duration) Notes Start Date End Date Status Night Splint AFO - L1930 as directed 11/24/2017 Active Motrin PRN Active Social History Tobacco Use: Social History Observation Description Date Details (start date - stop date) Current Smoker NA - NA Tobacco Use/Smoking Question Answer Notes Are you a: current smoker When did you start smoking? 1997 How often do you smoke cigarettes? every day How many cigarettes a day do you smoke? 5 or les s How soon after you wake up d o you smoke your first cigarette? 31-60 minutes Are you interested in quitting? Not ready to jeanine t Additional Findings: Tobacco User Light cigarett e smoker ((1-9 cigs/day) Alcohol Screen Question Answer Notes Did you have a drink containing alcohol in the p ast year? Yes Points 0 Interpretation Negative Tobacco use other than smoking: Question Answer Notes Are you an other tobacco user? No Problems No Known Problems Plan Of Treatment Pending Test Test Name Order Date [id number],[id number] TENDON SHEATH/LIGAMENT 0 11/24/2017 Insurance Providers Payer Name Payer Address Payer Phone Subscriber Number Group Number Insured Name Patient Relationship to Insured Coverage Start Date Coverage End Date [facility] [address] [facility] [place] [id number] Deborah Pelaez Self - patient is the insured Medical (General) History Medical History History ICD Code Back,Hip,and Knee pain Mumps Chicken pox Surgical History Surgery Date(Month/Year) Hernia Repair 01/2016 gall bladder 09/2014 appendectomy 08/2004 Rt knee, meniscus 09/2009 - 02/2012
[2025-05-14 10:48] LABS: MANUAL DIFF FLAG NO
[2025-05-14 11:18] LABS: Hematocrit 45.9 % (37.0-47.0); Hemoglobin 15.0 g/dl (12.0-16.0); Imm Gran Abs Auto 0.03 X10*3/uL (0.00-0.03); Imm Gran Pct Auto 0.4 % (0.0-0.4); Lymphocytes Absolute Auto 1.6 X10*3/uL (1.2-4.9); Mean Corpuscular HGB Conc 32.7 g/dl (31.0-35.0); Mean Corpuscular Hemoglobin 31.1 pg (27.0-33.0); Mean Corpuscular Volume 95.2 fL (80.0-98.0); NRBC Abs Auto 0.000 X10*3/uL (0.0-0.012); NRBC Pct Auto 0.0 /100WBC (0.0-0.2); Platelet Count 375 X10*3/uL (160-400); Red Blood Count 4.82 X10*6/uL (4.20-5.50); White Blood Count 8.2 X10*3/uL (4.8-10.8)
[2025-05-14 11:49] LABS: Cholesterol 214 mg/dL (<200); HDL Cholesterol 46 mg/dL (>40); Triglycerides 155 mg/dL (<150)
[2025-05-14 11:56] LABS: Alanine Aminotransferase 26 U/L (0-31); Albumin Level 4.1 g/dL (3.5-5.0); Alkaline Phosphatase 75 U/L (39-117); Anion Gap 10 (12-20); Aspartate Amino Transferase 35 U/L (5-31); Blood Urea Nitrogen 13 mg/dL (9-16); Calcium 9.3 mg/dL (8.4-10.2); Carbon Dioxide 26 mmol/L (22-29); Chloride 109 mmol/L (96-108); Estimated Glomerular Filt Rate > 60; Potassium 4.2 mmol/L (3.3-5.1); Sodium 141 mmol/L (135-145); Total Protein 6.9 g/dL (6.5-8.0)
== END 2025-05-14 07:31 | disposition home or self-care (01) ==
LOC: HO.HMGCLDS 07:30
PROVIDERS: PCP Internal Medicine; Referring Provider Physician Assistant; Visit Provider Student in an Organized Health Care Education/Training Program
DX: Z00.00 Encounter for general adult medical examination without abnormal findings (principal); M05.79 Rheumatoid arthritis with rheumatoid factor of multiple sites without organ or systems involvement; Z13.220 Encounter for screening for lipoid disorders; Z13.6 Encounter for screening for cardiovascular disorders
CPT/HCPCS: 36415; 80053; 80061; 85025; 85652; 86140

== ENCOUNTER 2025-05-21 07:58 | Outpatient (AMB) | payer MEDICARE, SELFPAY ==
--- OUTSIDE RECORDS SUMMARY | 2025-05-21 08:05 | XMS_ITS | Patient Health Record ---
Author Organization [facility] [place] Address [address] [facility] [place] [address] Care Team Providers Care Cashier Associate Name Role Phone Jian Gill MD Primary Care Provider Unava ilable Black, Fouzia Unavailable [phone] Allergies Allergen (clinical drug ingredient) Drug/Non Drug [...] Treatment Pending Test Test Name Order Date [id number] TENDON SHEATH/LIGAMENT 0 11/24/2017 Insurance Providers Payer Name Payer Address Payer Phone Subscriber Number Group Number Insured Name Patient Relationship to Insured Coverage Start Date Coverage End Date [facility] [address] [facility] [id number] Deborah Pelaez Self - patient is the insured Medical (General) History Medical History History ICD Code Back,Hip,and Knee pain Mumps Chicken pox Surgical History Surgery Date(Month/Year) Hernia Repair 01/2016 gall bladder 09/2014 appendectomy 08/2004 Rt knee, meniscus 09/2009 - 02/2012
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
[2025-05-21 08:21] VITALS: BP 134/82; PULSE 74; O2SAT 99; BMI 30.4
== END 2025-05-21 09:08 | disposition home or self-care (01) ==
LOC: HO.RHES 07:59
PROVIDERS: PCP Internal Medicine; Visit Provider Student in an Organized Health Care Education/Training Program
DX: M05.79 Rheumatoid arthritis with rheumatoid factor of multiple sites without organ or systems involvement (principal); Z71.6 Tobacco abuse counseling; Z79.899 Other long term (current) drug therapy; Z79.631 Long term (current) use of antimetabolite agent
CPT/HCPCS: 99214; G2211

== ENCOUNTER → 2025-05-21 07:58 | Outpatient (BNVA) | payer MEDICARE, SELFPAY | PROVIDERS: PCP Internal Medicine; Visit Provider Student in an Organized Health Care Education/Training Program | DX: M05.79 Rheumatoid arthritis with rheumatoid factor of multiple sites without organ or systems involvement (principal); Z79.899 Other long term (current) drug therapy; Z79.631 Long term (current) use of antimetabolite agent; Z71.6 Tobacco abuse counseling; F17.210 Nicotine dependence, cigarettes, uncomplicated | CPT/HCPCS: 99212 ==